=== PATIENT | female | born 1955 | race Hispanic/Latino ===

== ENCOUNTER → 2018-03-29 09:12 | Outpatient (CLI) | payer BC, SELFPAY ==
[2018-03-29 10:16] LABS: Alanine Aminotransferase 26 IU/L (9-52); Albumin 4.3 g/dL (3.5-5.0); Albumin Globulin Ratio 1.4 (1.0-2.8); Alkaline Phosphatase 85 U/L (38-126); Aspartate Aminotransferase 19 IU/L (14-36); BUN Creatinine Ratio 33.3 (6-22); Bilirubin Total 1.1 mg/dL (0.2-1.3); Blood Urea Nitrogen 20 mg/dL (7-17); Calcium 9.9 mg/dL (8.4-10.2); Carbon Dioxide 34 mmol/L (22-32); Chloride 103 mmol/L (98-107); Cholesterol 257 mg/dL (140-199); Estimated Glomerular Filt Rate > 60.0 mL/min (>60); Globulin 3.1 g/dL (1.7-4.1); Glucose 96 mg/dL (80-110); HDL Cholesterol 81 mg/dL (40-60); HEMOLYSIS < 15 (0-50); LDL Cholesterol Calculated 159 mg/dL (<100); Potassium 4.5 mmol/L (3.4-5.1); Sodium 144 mmol/L (137-145); Total Protein 7.4 g/dL (6.3-8.2); Triglycerides 85 mg/dL (35-150)
== END ==
PROVIDERS: PCP Family Medicine; Visit Provider Family Medicine
DX: I10 Essential (primary) hypertension (principal); E78.5 Hyperlipidemia, unspecified
CPT/HCPCS: 36415; 80053; 80061

== ENCOUNTER 2021-04-27 13:41 | Emergency (ER) | payer MEDICARE, BC, SELFPAY ==
[2021-04-27] VITALS (7 sets, daily range): BP systolic 136–167; BP diastolic 63–79; PULSE 46–63; RESP 16–21; TEMP 36.8; O2SAT 97–99; BMI 27.8
[2021-04-27 14:25] LABS: COVID19 -Nasal RAPID Negative (Negative)
[2021-04-27 14:46] LABS: Add Manual Diff / Slide Review NO; Basophils Absolute Auto 0 /uL (0-100); Basophils Percent Auto 0.2 % (0-2); Eosinophils Absolute Auto 0 /uL (0-450); Eosinophils Percent Auto 0.2 % (2-4); Hematocrit 41.9 % (36-46); Hemoglobin 13.8 g/dL (12.0-16.0); Lymphocytes Absolute Auto 2500 /uL (1100-4500); Lymphocytes Percent Auto 19.6 % (25-40); Mean Corpuscular HGB Conc 32.9 % (30-36); Mean Corpuscular Hemoglobin 30.4 PG (26-34); Mean Corpuscular Volume 92.4 fL (80-100); Monocytes Absolute Auto 400 /uL (0-900); Monocytes Percent Auto 2.9 % (3-14); Neutrophils Absolute Auto 9700 /uL (1500-7000); Neutrophils Percent Auto 77.1 % (50-75); Platelet Count 291 X10^3/uL (150-400); Red Blood Cell Count 4.54 X10^6/uL (4.0-5.2); Red Cell Distribution Width 14.1 % (11.6-14.8); White Blood Cell Count 12.6 X10^3/uL (4.5-11.0)
[2021-04-27 14:55] LABS: Alanine Aminotransferase 23 IU/L (<35); Albumin 4.4 g/dL (3.5-5.0); Albumin Globulin Ratio 1.3 (1.0-2.8); Alkaline Phosphatase 93 U/L (38-126); Aspartate Aminotransferase 25 IU/L (14-36); BUN Creatinine Ratio 42.3 (6-22); Bilirubin Total 0.8 mg/dL (0.2-1.3); Blood Urea Nitrogen 22 mg/dL (7-17); Carbon Dioxide 28 mmol/L (22-32); Chloride 102 mmol/L (98-107); Estimated Glomerular Filt Rate > 60.0 mL/min (>60); Globulin 3.5 g/dL (1.7-4.1); Glucose 141 mg/dL (80-110); HEMOLYSIS < 15 (0-50); Lipase 121 U/L (23-300); Potassium 3.7 mmol/L (3.4-5.1); Sodium 140 mmol/L (137-145); Total Protein 7.9 g/dL (6.3-8.2)
[2021-04-27] MEDS: ONDANSETRON 4 MG/2 ML INJ IV ×2 (15:19→18:03)
--- NOTE | 2021-04-27 16:51 | DI.CT.S_ITS ---
PROCEDURE: CT HEAD/BRAIN WO CON INDICATIONS: spinning/ dizzy TECHNIQUE: Noncontrast 4.5 mm thick angled axial sections acquired from the foramen magnum to the vertex, with coronal and sagittal reformats. For radiation dose reduction, the following was used: automated exposure control, adjustment of mA and/or kV according to patient size. COMPARISON: None. FINDINGS: Image quality: Excellent. CSF spaces: Basal cisterns are patent. No extra-axial fluid collections. The ventricles are symmetric in size and shape. Brain: No acute intracranial hemorrhage or mass effect. There is cerebral volume loss for age, with resultant ventricular and sulcal prominence. There are periventricular and deep white matter chronic small vessel ischemic changes. There is intracranial internal carotid artery atherosclerosis. Skull and face: Calvarium and visualized facial bones appear intact, without suspicious lesions. Sinuses: Visualized sinuses and mastoids are clear. IMPRESSION: No acute intracranial abnormality. Dictated by: Augustine Castillo M.D. on 04/27/2021 at 17:12 Approved by: Augustine Castillo M.D. on 04/27/2021 at 17:14
[2021-04-27 17:12] LABS: Creatine Kinase 30 U/L (30-135); Magnesium 1.9 mg/dL (1.6-2.3)
[2021-04-27 17:19] LABS: Bacteria Urine None Seen
[2021-04-27 17:24] LABS: Troponin I < 0.012 ng/mL (0.01-0.034)
[2021-04-27] MEDS: SODIUM CHLORIDE 0.9% 1,000 ML 1000 ML IV (17:31)
[2021-04-27 17:36] LABS: Mucus Urine 2+ (Negative); RBC Urine 0-1/HPF (0-5/HPF); Squamous Epithelial Cell Urine 0-1 /HPF (0-5/HPF); WBC Urine 0-1/HPF (0-5/HPF)
[2021-04-27 17:37] LABS: Culture Indicated Urine Cult Not Indicated
[2021-04-27] MEDS: MECLIZINE HCL 12.5 MG TABLET 50 MG PO (17:53)
--- NOTE | 2021-04-27 17:57 | PC.NURSE ---
ED Provider at bedside to perform physical manipulations to assess pt's response. Pt immediately reports worsening dizziness and nausea when R side is manipulated. Provided with emesis bag and zofran to be ordered.
--- NOTE | 2021-04-27 19:11 | PC.NURSE ---
Pt reports feeling much better after media analyst. Provider provided pt with PO chall of crackers and water.
--- NOTE | 2021-04-27 19:50 | ED.NAVMDI ---
HPI - Nausea/Vomiting/Diarrhea <[facility] - Last Filed: 04/27/21 19:58> General Chief complaint: Nausea/Vomiting/Diarrhea Stated complaint: dizzyness, nausea, vomiting, lightheaded, Time Seen by Provider: 04/27/21 16:35 Source: patient and family Mode of arrival: Wheelchair Limitations: no limitations History of Present Illness HPI Narrative: 65-year-old female with history of hypertension who presents with her sister for chief complaint of dizziness and spinning sensation. This happened in the middle the night at 3:30 a.m., she noted she rolled over and felt very spinning. Persistently she has felt spinning and nauseous since. She denies any chest pain or shortness of breath. She states that when this happened she woke up sweating. She denies any specific illness. She states she did have an episode of chest pain several years ago, but her Community prayed for her and it went away. She has not been vaccinated against coronavirus. She denies any fevers or muscle aches. She denies any Chest pain or shortness of breath. She denies any dysuria urgency or frequency. Related Data Previous Rx's Medication Instructions Recorded meclizine 25 mg tablet 25 mg PO TID PRN #20 tab 04/27/21 Allergies Allergy/AdvReac Type Severity Reaction Status Date / Time No Known Drug Allergies Allergy Verified 04/27/21 13:50 Review of Systems <[facility] - Last Filed: 04/27/21 19:58> Review of Systems Narrative: GENERAL: Denies chills, fatigue, malaise, fever, sweats. HEENT: Denies sinus pain, ear pain, sore throat, difficulty swallowing, dizziness. RESPIRATORY: Denies dyspnea, cough, wheezing, hemoptysis, sputum. CARDIOVASCULAR: See HPI GASTROINTESTINAL: Denies nausea, vomiting, abdominal pain, diarrhea, constipation, melena. : Denies dysuria, frequency, incontinence, hematuria, urinary retention. MUSCULOSKELETAL: denies weakness, joint pain, or bony pain SKIN: Denies rash, skin lesions, or other NEUROLOGIC: See HPI PSYCHIATRIC: No concerning psychosocial issues. 12 point review of systems is negative except for those stated above Patient History <[facility] - Last Filed: 04/27/21 19:58> Social History Smoking Status: Never smoker Smoking Status: Never smoker alcohol intake frequency: 0-2 drinks per day Substance Use Type: does not use Exam <Valentina CRISTY Aiken-BC - Last Filed: 04/27/21 19:58> Narrative Exam Narrative: GENERAL: This is a well-nourished, well-developed patient, in no acute distress HEAD: Atraumatic. Normocephalic. No temporal or scalp tenderness. EYES: Pupils equal round and reactive. Extraocular motions intact. No scleral icterus. No injection or drainage. ENT: Nose without bleeding, purulent drainage or septal hematoma. Throat without erythema, tonsillar hypertrophy or exudate. Uvula midline. Airway patent. Horizontal nystagmus noted. Bilateral TMs pearly leung. NECK: Trachea midline. No JVD or lymphadenopathy. Supple, nontender, no meningeal signs. CARDIOVASCULAR: Regular rate and rhythm without murmurs, gallops, or rubs. RESPIRATORY: Clear to auscultation. Breath sounds equal bilaterally. No wheezes, rales, or rhonchi. No cough. No increased respiratory effort. No accessory muscle use GASTROINTESTINAL: Abdomen soft, non-tender, nondistended. No hepato-splenomegaly, or palpable masses. No guarding. EXTREMITIES: No clubbing, cyanosis, or edema. No joint tenderness, effusion, or edema noted. Strength is equal upper and lower extremities bilaterally. BACK: Nontender without deformity or crepitance. No flank tenderness. NEURO: AOx3. NIH 0. Positive Shabnam-Hallpike on right side. Negative Dallas-Hallpike on left side. SKIN: No rash or erythema. Initial Vital Signs Initial Vital Signs: Vital Signs Temperature 98.2 F 04/27/21 13:47 Pulse Rate 63 04/27/21 13:47 Respiratory Rate 18 04/27/21 13:47 Blood Pressure 167/79 H 04/27/21 13:47 Pulse Oximetry 97 04/27/21 13:47 <José Antonio Cervantes DO - Last Filed: 04/28/21 07:05> Initial Vital Signs Initial Vital Signs: Vital Signs Temperature 98.2 F 04/27/21 13:47 Pulse Rate 63 04/27/21 13:47 Respiratory Rate 18 04/27/21 13:47 Blood Pressure 167/79 H 04/27/21 13:47 Pulse Oximetry 97 04/27/21 13:47 Scores <MARIAMA Granados - Last Filed: 04/27/21 19:58> GCS [place] coma scale eye opening: Spontaneous [place] coma scale verbal response: Orientated [place] coma scale motor response: Obey commands Gabbi coma scale total score: 15 NIH Stroke Scale Level of Conciousness: Alert, keenly responsive Ask month/age: Answers both questions correctly. Open/close eyes, close hand: Performs both tasks correctly Best gaze horizontal: Normal Visual katz: No visual loss Facial palsy: Normal symetrical movement Left arm drift: No drift for full 10 sec Right arm drift: No drift for full 10 sec Left leg drift: No drift for full 5 sec Right leg drift: No drift for full 5 sec Limb ataxia: Absent Sensory on face/arms/legs: Normal, no sensory loss Best language: No aphasia, normal Dysarthria: Normal Extinction or inattention: No abnormality Total NIH Stroke scale score: 0 <José Antonio Cervantes DO - Last Filed: 04/28/21 07:05> GCS [place] coma scale total score: 15 NIH Stroke Scale Total NIH Stroke scale score: 0 Course <MARIAMA Granados - Last Filed: 04/27/21 19:58> Orders Ordered: Discontinued Medications Sodium Chloride (Normal Saline 0.9%) 1,000 mls @ 1,000 mls/hr IV BOLUS ONE Stop: 04/27/21 17:50 Last Infusion: 04/27/21 19:09 Dose: 0 mls/hr Documented by: Admin: 04/27/21 17:31 Dose: 1,000 mls/hr Documented by: DALIA Meclizine HCl (Meclizine Hcl 12.5 Mg Tablet) 50 mg PO NOW ONE Stop: 04/27/21 17:34 Last Admin: 04/27/21 17:53 Dose: 50 mg Documented by: DALIA Ondansetron HCl (Ondansetron 4 Mg/2 Ml Inj) 4 mg IV NOW ONE Stop: 04/27/21 15:19 Last Admin: 04/27/21 15:19 Dose: 4 mg Documented by: NATANAEL Ondansetron HCl (Ondansetron 4 Mg/2 Ml Inj) 4 mg IV NOW ONE Stop: 04/27/21 17:57 Last Admin: 04/27/21 18:03 Dose: 4 mg Documented by: DALIA Vital Signs Vital signs: Vital Signs - 8 hr 04/27/21 13:47 04/27/21 16:37 04/27/21 17:09 Temperature 98.2 F Pulse Rate 63 48 L 50 L Respiratory Rate 18 20 Blood Pressure 167/79 H 155/67 H Pulse Oximetry 97 99 04/27/21 17:10 04/27/21 18:00 04/27/21 18:30 Temperature Pulse Rate 54 L 46 L Respiratory Rate 16 21 Blood Pressure 136/63 Pulse Oximetry 99 97 04/27/21 19:00 Temperature Pulse Rate 47 L Respiratory Rate 20 Blood Pressure Pulse Oximetry 99 <José Antonio Cervantes DO - Last Filed: 04/28/21 07:05> Orders Ordered: Discontinued Medications Sodium Chloride (Normal Saline 0.9%) 1,000 mls @ 1,000 mls/hr IV BOLUS ONE Stop: 04/27/21 17:50 Last Infusion: 04/27/21 19:09 Dose: 0 mls/hr Documented by: Admin: 04/27/21 17:31 Dose: 1,000 mls/hr Documented by: DALIA Meclizine HCl (Meclizine Hcl 12.5 Mg Tablet) 50 mg PO NOW ONE Stop: 04/27/21 17:34 Last Admin: 04/27/21 17:53 Dose: 50 mg Documented by: DALIA Ondansetron HCl (Ondansetron 4 Mg/2 Ml Inj) 4 mg IV NOW ONE Stop: 04/27/21 15:19 Last Admin: 04/27/21 15:19 Dose: 4 mg Documented by: NATANAEL Ondansetron HCl (Ondansetron 4 Mg/2 Ml Inj) 4 mg IV NOW ONE Stop: 04/27/21 17:57 Last Admin: 04/27/21 18:03 Dose: 4 mg Documented by: DALIA Vital Signs Vital signs: Vital Signs - 8 hr 04/27/21 13:47 04/27/21 16:37 04/27/21 17:09 Temperature 98.2 F Pulse Rate 63 48 L 50 L Respiratory Rate 18 20 Blood Pressure 167/79 H 155/67 H Pulse Oximetry 97 99 04/27/21 17:10 04/27/21 18:00 04/27/21 18:30 Temperature Pulse Rate 54 L 46 L Respiratory Rate 16 21 Blood Pressure 136/63 Pulse Oximetry 99 97 04/27/21 19:00 Temperature Pulse Rate 47 L Respiratory Rate 20 Blood Pressure Pulse Oximetry 99 MDM - Nausea/Vomiting/Diarrhea <Valentinajessica Aiken, CUSTOMER [employer]IER-BC - Last Filed: 04/27/21 19:58> Lab Data Attestation: I reviewed the patient's lab results. Result diagrams: 04/27/21 14:40 04/27/21 14:40 Labs: Lab Results 04/27/21 04/27/21 04/27/21 Range/Units 13:53 14:40 14:40 WBC 12.6 H (4.5-11.0) X10^3/uL RBC 4.54 (4.0-5.2) X10^6/uL Hgb 13.8 (12.0-16.0) g/dL Hct 41.9 (36-46) % MCV 92.4 (80-100) fL MCH 30.4 (26-34) PG MCHC 32.9 (30-36) % RDW 14.1 (11.6-14.8) % Plt Count 291 (150-400) X10^3/uL Neut % (Auto) 77.1 H (50-75) % Lymph % (Auto) 19.6 L (25-40) % [place] % (Auto) 2.9 L (3-14) % Eos % (Auto) 0.2 L (2-4) % Baso % (Auto) 0.2 (0-2) % Neut # (Auto) 9700 H (4323-7848) /uL Lymph # (Auto) 2500 (2309-5468) /uL [place] # (Auto) 400 (0-900) /uL Eos # (Auto) 0 (0-450) /uL Baso # (Auto) 0 (0-100) /uL Sodium 140 (137-145) mmol/L Potassium 3.7 (3.4-5.1) mmol/L Chloride 102 (98-107) mmol/L Carbon Dioxide 28 (22-32) mmol/L BUN 22 H (7-17) mg/dL Creatinine 0.52 (0.52-1.04) mg/dL Estimated GFR > 60.0 (>60) mL/min BUN/Creatinine Ratio 42.3 H (6-22) Glucose 141 H (80-110) mg/dL Calcium 10.0 (8.4-10.2) mg/dL Magnesium (1.6-2.3) mg/dL Total Bilirubin 0.8 (0.2-1.3) mg/dL AST 25 (14-36) IU/L ALT 23 (<35) IU/L Alkaline Phosphatase 93 (38-126) U/L Total Creatine Kinase (30-135) U/L CK-MB (CK-2) CK-MB (CK-2) Rel Index Troponin I (0.01-0.034) ng/mL Total Protein 7.9 (6.3-8.2) g/dL Albumin 4.4 (3.5-5.0) g/dL Globulin 3.5 (1.7-4.1) g/dL Albumin/Globulin Ratio 1.3 (1.0-2.8) Lipase 121 (23-300) U/L Urine RBC (0-5/HPF) Urine WBC (0-5/HPF) Ur Squamous Epith Cells (0-5/HPF) Urine Bacteria (None) Urine Mucus (Negative) Ur Culture Indicated? SARS-CoV-2 (PCR) Negative (Negative) 04/27/21 04/27/21 Range/Units 14:40 17:00 WBC (4.5-11.0) X10^3/uL RBC (4.0-5.2) X10^6/uL Hgb (12.0-16.0) g/dL Hct (36-46) % MCV (80-100) fL MCH (26-34) PG MCHC (30-36) % RDW (11.6-14.8) % Plt Count (150-400) X10^3/uL Neut % (Auto) (50-75) % Lymph % (Auto) (25-40) % [place] % (Auto) (3-14) % Eos % (Auto) (2-4) % Baso % (Auto) (0-2) % Neut # (Auto) (2308-3552) /uL Lymph # (Auto) (9789-4022) /uL [place] # (Auto) (0-900) /uL Eos # (Auto) (0-450) /uL Baso # (Auto) (0-100) /uL Sodium (137-145) mmol/L Potassium (3.4-5.1) mmol/L Chloride (98-107) mmol/L Carbon Dioxide (22-32) mmol/L BUN (7-17) mg/dL Creatinine (0.52-1.04) mg/dL Estimated GFR (>60) mL/min BUN/Creatinine Ratio (6-22) Glucose (80-110) mg/dL Calcium (8.4-10.2) mg/dL Magnesium 1.9 (1.6-2.3) mg/dL Total Bilirubin (0.2-1.3) mg/dL AST (14-36) IU/L ALT (<35) IU/L Alkaline Phosphatase (38-126) U/L Total Creatine Kinase 30 (30-135) U/L CK-MB (CK-2) TNP CK-MB (CK-2) Rel Index TNP Troponin I < 0.012 (0.01-0.034) ng/mL Total Protein (6.3-8.2) g/dL Albumin (3.5-5.0) g/dL Globulin (1.7-4.1) g/dL Albumin/Globulin Ratio (1.0-2.8) Lipase (23-300) U/L Urine RBC 0-1/hpf (0-5/HPF) Urine WBC 0-1/hpf (0-5/HPF) Ur Squamous Epith Cells 0-1 /hpf (0-5/HPF) Urine Bacteria None seen (None) Urine Mucus 2+ H (Negative) Ur Culture Indicated? Cult not indicated SARS-CoV-2 (PCR) (Negative) Urine Dip Bedside Urine Glucose Negative Bedside Urine Bilirubin - Negative Bedside Urine Ketone - Negative Urine Specific [place] 1.030 Bedside Urine Occult Blood +/- Bedside Urine pH 6 Bedside Urine Protein +/- 15 Bedside Urine Urobilinogen - Negative Bedside Urine Nitrite - Negative Bedside Urine Leukocytes - Negative Esterase Imaging Data CT scan - head: Radiologist's Impression: [address] [place] [id number] Scan ReportSigned Patient: Tyra Hoffmann AM[facility]#: [id number]: 4Acct:[id number]/Sex: 65 / FDate of Service: 04/27/21Loc: EDAccession Number: [id number] Procedure: CT head/brain wo con Ordering Provider: Valentina Aiken PROCEDURE: CT HEAD/BRAIN WO CON INDICATIONS: spinning/ dizzy TECHNIQUE: Noncontrast 4.5 mm thick angled axial sections acquired from the foramen magnum to the vertex, with coronal and sagittal reformats. For radiation dose reduction, the following was used: automated exposure control, adjustment of mA and/or kV according to patient size. COMPARISON: None. FINDINGS: Image quality: Excellent. CSF spaces: Basal cisterns are patent. No extra-axial fluid collections. The ventricles are symmetric in size and shape. Brain: No acute intracranial hemorrhage or mass effect. There is cerebral volume loss for age, with resultant ventricular and sulcal prominence. There are periventricular and deep white matter chronic small vessel ischemic changes. There is intracranial internal carotid artery atherosclerosis. Skull and face: Calvarium and visualized facial bones appear intact, without suspicious lesions. Sinuses: Visualized sinuses and mastoids are clear. IMPRESSION: No acute intracranial abnormality. Dictated by: Augustine Castillo M.D. on 04/27/2021 at 17:12 Approved by: Augustine Castillo M.D. on 04/27/2021 at 17:14 ECG Data Attestation: I personally reviewed and interpreted this ECG as follows: Interpretation: Sinus bradycardia. Ventricular rate 59. P.r. interval 144. viewed by Dr Cervantes MDM Narrative Medical decision making narrative: The patient is a 65-year-old female who presents with a chief complaint of a spinning sensation since 03:30 this morning. Her NIH is 0. Her COVID test is negative. Her labs are grossly normal, including a negative troponin. However she does have a positive [place]-Hallpike, and initiation of spinning sensation while rolling over in bed. Thus she was given IV fluids, Zofran and meclizine for vertigo. She felt much improved after this was able to tolerate p.o. food and fluids. I discussed at length with the patient and family that she needs primary care provider follow-up, may need to have Noris's maneuvers done etcetera. Discussed at length case with Dr Cervantes. No sign of UTI on urinalysis. Discussed at length rest, sleep, pushing fluids use of meclizine and coming back to the ER for acute concerns. Patient has no questions or concerns upon discharge states understanding return precautions as well as follow-up care. She reiterates she feels much improved compared to when she got here. Patient has appeared well and nontoxic throughout her stay in the ER. <José Antonio Cervantes, DO - Last Filed: 04/28/21 07:05> Lab Data Labs: Lab Results 04/27/21 04/27/21 04/27/21 Range/Units 13:53 14:40 14:40 WBC 12.6 H (4.5-11.0) X10^3/uL RBC 4.54 (4.0-5.2) X10^6/uL Hgb 13.8 (12.0-16.0) g/dL Hct 41.9 (36-46) % MCV 92.4 (80-100) fL MCH 30.4 (26-34) PG MCHC 32.9 (30-36) % RDW 14.1 (11.6-14.8) % Plt Count 291 (150-400) X10^3/uL Neut % (Auto) 77.1 H (50-75) % Lymph % (Auto) 19.6 L (25-40) % [place] % (Auto) 2.9 L (3-14) % Eos % (Auto) 0.2 L (2-4) % Baso % (Auto) 0.2 (0-2) % Neut # (Auto) 9700 H (7774-9102) /uL Lymph # (Auto) 2500 (4274-6846) /uL [place] # (Auto) 400 (0-900) /uL Eos # (Auto) 0 (0-450) /uL Baso # (Auto) 0 (0-100) /uL Sodium 140 (137-145) mmol/L Potassium 3.7 (3.4-5.1) mmol/L Chloride 102 (98-107) mmol/L Carbon Dioxide 28 (22-32) mmol/L BUN 22 H (7-17) mg/dL Creatinine 0.52 (0.52-1.04) mg/dL Estimated GFR > 60.0 (>60) mL/min BUN/Creatinine Ratio 42.3 H (6-22) Glucose 141 H (80-110) mg/dL Calcium 10.0 (8.4-10.2) mg/dL Magnesium (1.6-2.3) mg/dL Total Bilirubin 0.8 (0.2-1.3) mg/dL AST 25 (14-36) IU/L ALT 23 (<35) IU/L Alkaline Phosphatase 93 (38-126) U/L Total Creatine Kinase (30-135) U/L CK-MB (CK-2) CK-MB (CK-2) Rel Index Troponin I (0.01-0.034) ng/mL Total Protein 7.9 (6.3-8.2) g/dL Albumin 4.4 (3.5-5.0) g/dL Globulin 3.5 (1.7-4.1) g/dL Albumin/Globulin Ratio 1.3 (1.0-2.8) Lipase 121 (23-300) U/L Urine RBC (0-5/HPF) Urine WBC (0-5/HPF) Ur Squamous Epith Cells (0-5/HPF) Urine Bacteria (None) Urine Mucus (Negative) Ur Culture Indicated? SARS-CoV-2 (PCR) Negative (Negative) 04/27/21 04/27/21 Range/Units 14:40 17:00 WBC (4.5-11.0) X10^3/uL RBC (4.0-5.2) X10^6/uL Hgb (12.0-16.0) g/dL Hct (36-46) % MCV (80-100) fL MCH (26-34) PG MCHC (30-36) % RDW (11.6-14.8) % Plt Count (150-400) X10^3/uL Neut % (Auto) (50-75) % Lymph % (Auto) (25-40) % [place] % (Auto) (3-14) % Eos % (Auto) (2-4) % Baso % (Auto) (0-2) % Neut # (Auto) (3025-6727) /uL Lymph # (Auto) (4569-2466) /uL [place] # (Auto) (0-900) /uL Eos # (Auto) (0-450) /uL Baso # (Auto) (0-100) /uL Sodium (137-145) mmol/L Potassium (3.4-5.1) mmol/L Chloride (98-107) mmol/L Carbon Dioxide (22-32) mmol/L BUN (7-17) mg/dL Creatinine (0.52-1.04) mg/dL Estimated GFR (>60) mL/min BUN/Creatinine Ratio (6-22) Glucose (80-110) mg/dL Calcium (8.4-10.2) mg/dL Magnesium 1.9 (1.6-2.3) mg/dL Total Bilirubin (0.2-1.3) mg/dL AST (14-36) IU/L ALT (<35) IU/L Alkaline Phosphatase (38-126) U/L Total Creatine Kinase 30 (30-135) U/L CK-MB (CK-2) TNP CK-MB (CK-2) Rel Index TNP Troponin I < 0.012 (0.01-0.034) ng/mL Total Protein (6.3-8.2) g/dL Albumin (3.5-5.0) g/dL Globulin (1.7-4.1) g/dL Albumin/Globulin Ratio (1.0-2.8) Lipase (23-300) U/L Urine RBC 0-1/hpf (0-5/HPF) Urine WBC 0-1/hpf (0-5/HPF) Ur Squamous Epith Cells 0-1 /hpf (0-5/HPF) Urine Bacteria None seen (None) Urine Mucus 2+ H (Negative) Ur Culture Indicated? Cult not indicated SARS-CoV-2 (PCR) (Negative) Urine Dip Bedside Urine Glucose Negative Bedside Urine Bilirubin - Negative Bedside Urine Ketone - Negative Urine Specific [place] 1.030 Bedside Urine Occult Blood +/- Bedside Urine pH 6 Bedside Urine Protein +/- 15 Bedside Urine Urobilinogen - Negative Bedside Urine Nitrite - Negative Bedside Urine Leukocytes - Negative Esterase Discharge Plan Departure Patient Disposition: Home Clinical Impression: Dizziness, Vertigo Instructions: Vertigo, Benign Paroxysmal Positional Vertigo Activity Restrictions/Additional Instructions: Thank you for trusting us with your care today. Your workup is consistent with vertigo. As discussed, please follow-up with primary care provider in the next few days. Please rest and push fluids over the next few days. I sent a prescription of meclizine to [facility] in [place]. Please come back to the emergency department for any acute concerns. Prescriptions: New meclizine 25 mg tablet 25 mg PO TID PRN (Reason: motion sickness) Qty: 20 RF: 0 Referrals: Yoav Gunn MD [Primary Care Provider] - <José Antonio Cervantes DO - Last Filed: 04/28/21 07:05> [facility] Dr Cervantes Co-Sign Statement: I was available for consultation during this patient's emergency department visit. This chart is signed by myself for administrative purposes only. I did not have direct contact with this patient during this visit. They were seen independently by the APC.
== END 2021-04-27 19:46 | disposition home or self-care (01) ==
PROVIDERS: Emergency Medicine; Emergency Provider Nurse Practitioner Family; PCP Family Medicine
DX: R42 Dizziness and giddiness (principal); R07.9 Chest pain, unspecified; Z20.822 Contact with and (suspected) exposure to COVID-19
CPT/HCPCS: 36415; 70450; 80053; 81003; 81015; 82550; 83690; 83735; 84484; 85025; 87635; 93005; 96361; 96374; 96376; 99285; C9803; J2405

== ENCOUNTER 2022-10-05 15:15 | Outpatient (RCR) | payer MEDICARE, BC, SELFPAY ==
--- NOTE | 2022-08-26 15:36 | PT.OIE ---
Current Diagnoses Benign paroxysmal vertigo, left ear (08/26/22) Dizziness and giddiness (08/26/22) Visit Care Team Role Provider Type Yoav Gunn MD Attending Provider Non-Staff Family Provider Primary Care Provider Referring Provider Specialty: Family Practice Address: [address] [place] [address], [phone] Email: Physical Therapy Initial Evaluation PT-OP-A Visit Information Start: 08/26/22 15:18 Freq: Status: Active Protocol: Document 08/26/22 13:45 DCW (Rec: 08/26/22 15:36 DCW [id number]) Out-Patient Physical Therapy Visit Information Visit Information Visit Type Initial Evaluation Visit Start Time 13:45 Visit Stop Time 14:30 Total Visit Minutes 45 Visit Number 1 Number of BLOCK MAKING MACHINE OPERATOR Visits 0 Evaluation Information Evaluation Date 08/26/22 PT-OP-B Current Condition Start: 08/26/22 15:18 Freq: Status: Active Protocol: Document 08/26/22 13:45 DCW (Rec: 08/26/22 15:36 DCW [id number]) Current Condition History of Current Condition Onset Date 13 months Current Complaints Positional vertigo History of Current Condition Pt is a 67 year old female complaining of a 13 month history of motion-induced vertigo and imbalance. Pt reports episodes last seconds . Symptoms are provoked by lying down or sitting up in bed. Pt reports that she was treated four separate times in July and August 2021, and September 2021 at a different clinic for these same symptoms, reports that symptoms decreased in severity , however she doesn't think it ever truly went away. Does note that recently she has felt much more of a low-level instability when up moving around on her feet. Prior Treatments and Tests Noris maneuver x4 11-13 months ago at a different clinic PT-OP-C Subjective Start: 08/26/22 15:18 Freq: Status: Active Protocol: Document 08/26/22 13:45 DCW (Rec: 08/26/22 15:36 DCW [id number]) OP-PT Subjective Patient Comments Patient Comments It's been going on since last July. It's not as bad, but I feel a little more loopy now. Patient Questionnaires Dizziness Handicap Inventory DHI Score 54% PT-OP-O Vestibular Start: 08/26/22 15:18 Freq: Status: Active Protocol: Document 08/26/22 13:45 DCW (Rec: 08/26/22 15:36 DC [id number]) Vestibular Assessment Screening Tests Vestibular Artery Screen Negative Auditory Tests Leyva Test Within normal limits Rinne Test Negative Air Conduction Results Equal Visual Testing Smooth Pursuits Horizontal WNL Smooth Pursuits Vertical WNL Saccades Horizontal WNL Saccades Vertical WNL Heave Test Negative Thrust Head Negative Positional Testing Shabnam-Hallpike Positive Left,Negative Right, Upbeating,< 60 Seconds Rolling Test Negative Left,Negative Right PT-OP-Q Treatments Start: 08/26/22 15:18 Freq: Status: Active Protocol: Document 08/26/22 13:45 DCW (Rec: 08/26/22 15:36 DCW [id number]) Canalithic Repositioning BPPV Treatment Noris Affected Canal(s) Left posterior Reps x2 Comments Modified Noris PT-OP-T Assessment and Plan Start: 08/26/22 15:18 Freq: Status: Active Protocol: Document 08/26/22 13:45 DCW (Rec: 08/26/22 15:36 [facility] [id number]) Physical Therapy Assessment Rehab Potential Rehabilitation Potential Excellent Evaluation Complexity Number of Personal Factors/Comorbidities 0 Number of Body Systems Impaired 1-2 Clinical Presentation at Evaluation Unstable Impairments Impairments Balance,Vestibular Goals Two Impairment Pt reports subjective dizziness with positional changes in bed Director Blood Bank Goal (LTG) Pt to perform bed mobility with no symptoms of vertigo LTG Duration 10/07/22 One Impairment Pt scores a 54% handicap on the Dizziness Handicap Inventory Mcfp Goal (LTG) Pt to decrease DHI score by at least 29% to a maximum of 25% disability. LTG Duration 10/07/22 Assessment Summary Assessment During left [place]-Hallpike test, pt complained of vertigo and demonstrated up-beating, torsional nystagmus lasting approximately 5 seconds, consistent with diagnosis of left-sided posterior canal BPPV, canalithiasis-type. Pt was treated with a left-sided modified Noris maneuver. Pt complained of symptoms in the first and third position, which is normally indicative of a successful treatment. Further positional testing was negative. Pt was educated on BPPV, expectations for treatment, possible recurrence (BPPV has a ~50% recurrence rate in the five years following treatment), and post -Noris restrictions. Pt to return in ~1 week for a follow -up appointment, and intermittently afterward as indicated for treatment of BPPV. Physical Therapy Plan Frequency and Duration Frequency of Treatment 1-2x/week Duration of treatment (weeks) 6 Plan of Care Start Date 08/26/22 Plan of Care End Date 10/07/22 Therapeutic Interventions Therapeutic Interventions Balance Training,Canalithic Repositioning,Home Exercise Program,Neuromuscular Re- education,Therapeutic Activities,Therapeutic Exercises,Vestibular Rehabilitation Next Visit Focus/Plan Next Note Type Treatment Note Next Visit Plan Positional testing and CRM as indicated
--- NOTE | 2022-08-26 15:36 | PT.OPPOC ---
Physical, Occupational & Speech Therapy At Current Diagnoses Benign paroxysmal vertigo, left ear (08/26/22) Dizziness and giddiness (08/26/22) Visit Care Team Role Provider Type Yoav Gunn MD Attending Provider Non-Staff Family Provider Primary Care Provider Referring Provider Specialty: Family Practice Address: [address] [place] [address], [phone] Email: Plan Of Care PT-OP-T Assessment and Plan Start: 08/26/22 15:18 Freq: Status: Active Protocol: Document 08/26/22 13:45 DCW (Rec: 08/26/22 15:36 DCW [id number]) Physical Therapy Assessment Rehab Potential Rehabilitation Potential Excellent Evaluation Complexity Number of Personal Factors/Comorbidities 0 Number of Body Systems Impaired 1-2 Clinical Presentation at Evaluation Unstable Impairments Impairments Balance,Vestibular Goals Two Impairment Pt reports subjective dizziness with positional changes in bed Assistant Property Manager Goal (LTG) Pt to perform bed mobility with no symptoms of vertigo LTG Duration 10/07/22 One Impairment Pt scores a 54% handicap on the Dizziness Handicap Inventory Assistant Property Manager Goal (LTG) Pt to decrease DHI score by at least 29% to a maximum of 25% disability. LTG Duration 10/07/22 Assessment Summary Assessment During left [place]-Hallpike test, pt complained of vertigo and demonstrated up-beating, torsional nystagmus lasting approximately 5 seconds, consistent with diagnosis of left-sided posterior canal BPPV, canalithiasis-type. Pt was treated with a left-sided modified Noris maneuver. Pt complained of symptoms in the first and third position, which is normally indicative of a successful treatment. Further positional testing was negative. Pt was educated on BPPV, expectations for treatment, possible recurrence (BPPV has a ~50% recurrence rate in the five years following treatment), and post -Noris restrictions. Pt to return in ~1 week for a follow -up appointment, and intermittently afterward as indicated for treatment of BPPV. Physical Therapy Plan Frequency and Duration Frequency of Treatment 1-2x/week Duration of treatment (weeks) 6 Plan of Care Start Date 08/26/22 Plan of Care End Date 10/07/22 Therapeutic Interventions Therapeutic Interventions Balance Training,Canalithic Repositioning,Home Exercise Program,Neuromuscular Re- education,Therapeutic Activities,Therapeutic Exercises,Vestibular Rehabilitation Next Visit Focus/Plan Next Note Type Treatment Note Next Visit Plan Positional testing and CRM as indicated Plan of Care Dates Plan of Care Start Date 08/26/22 Plan of Care End Date 10/07/22 Electronically Signed by: Cortez Alcantar, PT 08/26/22 9316 If you are in agreement with this Plan of Care, please return a signed and dated copy. I have reviewed this Plan of Care and certify that the skilled therapy services above are required to meet the patient?s needs. Physician Signature Date Printed Name and Credentials Clinical Instructor Signature Printed Name and Credentials
--- NOTE | 2022-08-29 14:27 | PT.OTN ---
Current Diagnoses Benign paroxysmal vertigo, left ear (08/29/22) Dizziness and giddiness (08/29/22) Physical Therapy Treatment Note PT-OP-A Visit Information Start: 08/26/22 15:18 Freq: Status: Active Protocol: Document 08/29/22 13:45 DCW (Rec: 08/29/22 14:27 DCW [id number]) Out-Patient Physical Therapy Visit Information Visit Information Visit Type Treatment Note Visit Start Time 13:45 Visit Stop Time 14:15 Total Visit Minutes 30 Visit Number 2 Number of SEAM FINISHER Visits 0 Evaluation Information Evaluation Date 08/26/22 PT-OP-B Current Condition Start: 08/26/22 15:18 Freq: Status: Active Protocol: Document 08/26/22 13:45 DCW (Rec: 08/26/22 15:36 DCW [id number]) Current Condition History of Current Condition Onset Date 13 months Current Complaints Positional vertigo History of Current Condition Pt is a 67 year old female complaining of a 13 month history of motion-induced vertigo and imbalance. Pt reports episodes last seconds . Symptoms are provoked by lying down or sitting up in bed. Pt reports that she was treated four separate times in July and August 2021, and September 2021 at a different clinic for these same symptoms, reports that symptoms decreased in severity , however she doesn't think it ever truly went away. Does note that recently she has felt much more of a low-level instability when up moving around on her feet. Prior Treatments and Tests Noris maneuver x4 11-13 months ago at a different clinic PT-OP-C Subjective Start: 08/26/22 15:18 Freq: Status: Active Protocol: Document 08/29/22 13:45 DCW (Rec: 08/29/22 14:27 DCW [id number]) OP-PT Subjective Patient Comments Patient Comments Pt reports there has been no spinning, still feeling just a little lightheaded. PT-OP-O Vestibular Start: 08/26/22 15:18 Freq: Status: Active Protocol: Document 08/26/22 13:45 DCW (Rec: 08/26/22 15:36 DCW [id number]) Vestibular Assessment Screening Tests Vestibular Artery Screen Negative Auditory Tests Leyva Test Within normal limits Rinne Test Negative Air Conduction Results Equal Visual Testing Smooth Pursuits Horizontal WNL Smooth Pursuits Vertical WNL Saccades Horizontal WNL Saccades Vertical WNL Heave Test Negative Thrust Head Negative Positional Testing Shabnam-Hallpike Positive Left,Negative Right, Upbeating,< 60 Seconds Rolling Test Negative Left,Negative Right PT-OP-Q Treatments Start: 08/26/22 15:18 Freq: Status: Active Protocol: Document 08/29/22 13:45 DCW (Rec: 08/29/22 14:27 DCW [id number]) Canalithic Repositioning BPPV Treatment Gufoni Affected Canal(s) Right horizontal Reps x1 Noris Affected Canal(s) Right posterior Reps x1 Comments Modified Noris PT-OP-T Assessment and Plan Start: 08/26/22 15:18 Freq: Status: Active Protocol: Document 08/29/22 13:45 DCW (Rec: 08/29/22 14:27 DCW [id number]) Physical Therapy Assessment Impairments Impairments Balance,Vestibular Goals Two Impairment Pt reports subjective dizziness with positional changes in bed Penitentiary Goal (LTG) Pt to perform bed mobility with no symptoms of vertigo LTG Duration 10/07/22 One Impairment Pt scores a 54% handicap on the Dizziness Handicap Inventory Penitentiary Goal (LTG) Pt to decrease DHI score by at least 29% to a maximum of 25% disability. LTG Duration 10/07/22 Assessment Summary Assessment Left Shabnam-Hallpike negative for nystagmus, however pt noted some very mild vertigo. Upon testing right side, pt had very strong vertigo with up- beating, torsional nystagmus lasting approximately 5 seconds, consistent with diagnosis of right-sided posterior canal BPPV, canalithiasis-type. Pt was treated with a right-sided modified Noris maneuver. Pt complained of symptoms in the first and third position, which is normally indicative of a successful treatment. Upon retesting, pt then complained of vertigo with geotropic horizontal nystagmus , likely indicating conversion to right-sided horizontal canal BPPV, canalithiasis-type . Pt was treated with a right- sided Gufoni maneuver. Due to recent conversion, decided to forego further testing for today, pt reminded of post- Noris restrictions. Physical Therapy Plan Frequency and Duration Frequency of Treatment 1-2x/week Duration of treatment (weeks) 6 Plan of Care Start Date 08/26/22 Plan of Care End Date 10/07/22 Therapeutic Interventions Therapeutic Interventions Balance Training,Canalithic Repositioning,Home Exercise Program,Neuromuscular Re- education,Therapeutic Activities,Therapeutic Exercises,Vestibular Rehabilitation Next Visit Focus/Plan Next Note Type Treatment Note Next Visit Plan Positional testing and CRM as indicated
--- NOTE | 2022-09-02 10:55 | PT.OTN ---
Current Diagnoses Benign paroxysmal vertigo, left ear (09/02/22) Dizziness and giddiness (09/02/22) Physical Therapy Treatment Note PT-OP-A Visit Information Start: 08/26/22 15:18 Freq: Status: Active Protocol: Document 09/02/22 10:30 DCW (Rec: 09/02/22 10:54 DCW [id number]) Out-Patient Physical Therapy Visit Information Visit Information Visit Type Treatment Note Visit Start Time 10:30 Visit Stop Time 10:50 Total Visit Minutes 20 Visit Number 3 Number of RESIDENTIAL SUPPORT WORKER Visits 0 Evaluation Information Evaluation Date 08/26/22 PT-OP-B Current Condition Start: 08/26/22 15:18 Freq: Status: Active Protocol: Document 08/26/22 13:45 DCW (Rec: 08/26/22 15:36 DCW [id number]) Current Condition History of Current Condition Onset Date 13 months Current Complaints Positional vertigo History of Current Condition Pt is a 67 year old female complaining of a 13 month history of motion-induced vertigo and imbalance. Pt reports episodes last seconds . Symptoms are provoked by lying down or sitting up in bed. Pt reports that she was treated four separate times in July and August 2021, and September 2021 at a different clinic for these same symptoms, reports that symptoms decreased in severity , however she doesn't think it ever truly went away. Does note that recently she has felt much more of a low-level instability when up moving around on her feet. Prior Treatments and Tests Noris maneuver x4 11-13 months ago at a different clinic PT-OP-C Subjective Start: 08/26/22 15:18 Freq: Status: Active Protocol: Document 09/02/22 10:30 DCW (Rec: 09/02/22 10:54 DCW [id number]) OP-PT Subjective Patient Comments Patient Comments The vertigo has come back. Admits it is not too bad, but there is some spinning. PT-OP-O Vestibular Start: 08/26/22 15:18 Freq: Status: Active Protocol: Document 09/02/22 10:30 DCW (Rec: 09/02/22 10:54 DCW [id number]) Vestibular Assessment Positional Testing Shabnam-Hallpike Positive Left,Positive Right, Upbeating,< 60 Seconds PT-OP-Q Treatments Start: 12/09/22 15:18 Freq: Status: Active Protocol: Document 09/02/22 10:30 DCW (Rec: 09/02/22 10:54 DCW [id number]) Canalithic Repositioning BPPV Treatment Noris Affected Canal(s) Left posterior Reps x2 Comments Modified Noris PT-OP-T Assessment and Plan Start: 08/26/22 15:18 Freq: Status: Active Protocol: Document 09/02/22 10:30 DCW (Rec: 09/02/22 10:54 DCW [id number]) Physical Therapy Assessment Impairments Impairments Balance,Vestibular Goals Two Impairment Pt reports subjective dizziness with positional changes in bed Child Caregiver Goal (LTG) Pt to perform bed mobility with no symptoms of vertigo LTG Duration 10/07/22 One Impairment Pt scores a 54% handicap on the Dizziness Handicap Inventory Senior Care Goal (LTG) Pt to decrease DHI score by at least 29% to a maximum of 25% disability. LTG Duration 10/07/22 Assessment Summary Assessment Bilaterally positive today with Hallpike testing, focused treatment more on left side, which was a more severely positive test. Pt appears to be a more complicated case to clear for some reason, potentially due to unusual anatomical positioning or difficulty following post- Noris precautions. Further L testing was negative. Will require follow-up testing and CRM Physical Therapy Plan Frequency and Duration Frequency of Treatment 1-2x/week Duration of treatment (weeks) 6 Plan of Care Start Date 08/26/22 Plan of Care End Date 10/07/22 Therapeutic Interventions Therapeutic Interventions Balance Training,Canalithic Repositioning,Home Exercise Program,Neuromuscular Re- education,Therapeutic Activities,Therapeutic Exercises,Vestibular Rehabilitation Next Visit Focus/Plan Next Note Type Treatment Note Next Visit Plan Positional testing and CRM as indicated
--- NOTE | 2022-09-27 10:28 | PT.OTN ---
Current Diagnoses Benign paroxysmal vertigo, left ear (09/27/22) Dizziness and giddiness (09/27/22) Physical Therapy Treatment Note PT-OP-A Visit Information Start: 08/26/22 15:18 Freq: Status: Active Protocol: Document 09/27/22 09:45 DCW (Rec: 09/27/22 10:28 DCW [id number]) Out-Patient Physical Therapy Visit Information Visit Information Visit Type Treatment Note Visit Start Time 09:45 Visit Stop Time 10:20 Total Visit Minutes 40 Visit Number 4 Number of SR RISK MANAGEMENT CONSULTANT Visits 0 Evaluation Information Evaluation Date 08/26/22 PT-OP-B Current Condition Start: 08/26/22 15:18 Freq: Status: Active Protocol: Document 08/26/22 13:45 DCW (Rec: 08/26/22 15:36 DCW [id number]) Current Condition History of Current Condition Onset Date 13 months Current Complaints Positional vertigo History of Current Condition Pt is a 67 year old female complaining of a 13 month history of motion-induced vertigo and imbalance. Pt reports episodes last seconds . Symptoms are provoked by lying down or sitting up in bed. Pt reports that she was treated four separate times in July and August 2021, and September 2021 at a different clinic for these same symptoms, reports that symptoms decreased in severity , however she doesn't think it ever truly went away. Does note that recently she has felt much more of a low-level instability when up moving around on her feet. Prior Treatments and Tests Noris maneuver x4 11-13 months ago at a different clinic PT-OP-C Subjective Start: 08/26/22 15:18 Freq: Status: Active Protocol: Document 09/27/22 09:45 DCW (Rec: 09/27/22 10:28 DCW [id number]) OP-PT Subjective Patient Comments Patient Comments Pt notes she continues to be symptomatic. Notes that it is about the same. PT-OP-O Vestibular Start: 08/26/22 15:18 Freq: Status: Active Protocol: Document 09/27/22 09:45 DCW (Rec: 09/27/22 10:28 DCW [id number]) Vestibular Assessment Positional Testing Shab[place]-Hallpike Positive Right,Negative Left, Upbeating,< 60 Seconds PT-OP-Q Treatments Start: 08/26/22 15:18 Freq: Status: Active Protocol: Document 09/27/22 09:45 DCW (Rec: 09/27/22 10:28 DCW [id number]) Canalithic Repositioning BPPV Treatment Gufoni Affected Canal(s) Right horizontal Reps x1 Noris Affected Canal(s) Right posterior Reps x1 Comments Modified Noris PT-OP-T Assessment and Plan Start: 08/26/22 15:18 Freq: Status: Active Protocol: Document 09/27/22 09:45 DCW (Rec: 09/27/22 10:28 DC [id number]) Physical Therapy Assessment Impairments Impairments Balance,Vestibular Goals Two Impairment Pt reports subjective dizziness with positional changes in bed Home Stereo Equipment Installer Goal (LTG) Pt to perform bed mobility with no symptoms of vertigo LTG Duration 10/07/22 One Impairment Pt scores a 54% handicap on the Dizziness Handicap Inventory Home Stereo Equipment Installer Goal (LTG) Pt to decrease DHI score by at least 29% to a maximum of 25% disability. LTG Duration 10/07/22 Assessment Summary Assessment Left [place]-Hallpike negative today. Right positive for posterior canal BPPV, canalithiasis-type. Modified R Noris was performed. Second [place]-Hallpike test showed severe horizontal, geotropic nystagmus, with associated nausea/vomiting, indicating conversion to horizontal canal BPPV, canalithiasis-type. Attempted Gufoni maneuver, pt able to maintain positioning relatively well, but did begin vomiting once again, but requested to continue maneuver . Recommend follow-up within the next week. Physical Therapy Plan Frequency and Duration Frequency of Treatment 1-2x/week Duration of treatment (weeks) 6 Plan of Care Start Date 08/26/22 Plan of Care End Date 10/07/22 Therapeutic Interventions Therapeutic Interventions Balance Training,Canalithic Repositioning,Home Exercise Program,Neuromuscular Re- education,Therapeutic Activities,Therapeutic Exercises,Vestibular Rehabilitation Next Visit Focus/Plan Next Note Type Treatment Note Next Visit Plan Positional testing and CRM as indicated
--- NOTE | 2022-10-03 12:23 | PT.OTN ---
Current Diagnoses Benign paroxysmal vertigo, left ear (10/03/22) Dizziness and giddiness (10/03/22) Physical Therapy Treatment Note PT-OP-A Visit Information Start: 08/26/22 15:18 Freq: Status: Active Protocol: Document 10/03/22 12:00 DCW (Rec: 10/03/22 12:22 DCW [id number]) Out-Patient Physical Therapy Visit Information Visit Information Visit Type Treatment Note Visit Start Time 12:00 Visit Stop Time 12:20 Total Visit Minutes 20 Visit Number 5 Number of SCREEN PRINTING LOADER UNLOADER Visits 0 Evaluation Information Evaluation Date 08/26/22 PT-OP-B Current Condition Start: 08/26/22 15:18 Freq: Status: Active Protocol: Document 08/26/22 13:45 DCW (Rec: 08/26/22 15:36 DCW [id number]) Current Condition History of Current Condition Onset Date 13 months Current Complaints Positional vertigo History of Current Condition Pt is a 67 year old female complaining of a 13 month history of motion-induced vertigo and imbalance. Pt reports episodes last seconds . Symptoms are provoked by lying down or sitting up in bed. Pt reports that she was treated four separate times in July and August 2021, and September 2021 at a different clinic for these same symptoms, reports that symptoms decreased in severity , however she doesn't think it ever truly went away. Does note that recently she has felt much more of a low-level instability when up moving around on her feet. Prior Treatments and Tests Noris maneuver x4 11-13 months ago at a different clinic PT-OP-C Subjective Start: 08/26/22 15:18 Freq: Status: Active Protocol: Document 10/03/22 12:00 DCW (Rec: 10/03/22 12:22 DCW [id number]) OP-PT Subjective Patient Comments Patient Comments Pt feels she has been asymptomatic since last visit. PT-OP-O Vestibular Start: 08/26/22 15:18 Freq: Status: Active Protocol: Document 10/03/22 12:00 DCW (Rec: 10/03/22 12:22 DCW [id number]) Vestibular Assessment Positional Testing [place]-Hallpike Positive Left,Upbeating,< 60 Seconds PT-OP-Q Treatments Start: 08/26/22 15:18 Freq: Status: Active Protocol: Document 10/03/22 12:00 DCW (Rec: 10/03/22 12:22 DCW [id number]) Canalithic Repositioning BPPV Treatment Noris Affected Canal(s) Left posterior Reps x2 Comments Modified Noris PT-OP-T Assessment and Plan Start: 08/26/22 15:18 Freq: Status: Active Protocol: Document 10/03/22 12:00 DCW (Rec: 10/03/22 12:22 DCW [id number]) Physical Therapy Assessment Impairments Impairments Balance,Vestibular Goals Two Impairment Pt reports subjective dizziness with positional changes in bed Flame Burner Goal (LTG) Pt to perform bed mobility with no symptoms of vertigo LTG Duration 10/07/22 One Impairment Pt scores a 54% handicap on the Dizziness Handicap Inventory [facility] Goal (LTG) Pt to decrease DHI score by at least 29% to a maximum of 25% disability. LTG Duration 10/07/22 Assessment Summary Assessment Left [place]-Hallpike positive for posterior canal BPPV, canalithiasis-type. Modified L Noris was performed. Pt complained of symptoms in the first and third position, which is normally indicative of a successful treatment. Further positional testing was negative. Physical Therapy Plan Frequency and Duration Frequency of Treatment 1-2x/week Duration of treatment (weeks) 6 Plan of Care Start Date 08/26/22 Plan of Care End Date 10/07/22 Therapeutic Interventions Therapeutic Interventions Balance Training,Canalithic Repositioning,Home Exercise Program,Neuromuscular Re- education,Therapeutic Activities,Therapeutic Exercises,Vestibular Rehabilitation Next Visit Focus/Plan Next Note Type Treatment Note Next Visit Plan Positional testing and CRM as indicated
--- NOTE | 2022-10-05 15:33 | PT.OTN ---
Current Diagnoses Benign paroxysmal vertigo, left ear (10/05/22) Dizziness and giddiness (10/05/22) Physical Therapy Treatment Note PT-OP-A Visit Information Start: 08/26/22 15:18 Freq: Status: Active Protocol: Document 10/05/22 15:15 DCW (Rec: 10/05/22 15:32 DCW [id number]) Out-Patient Physical Therapy Visit Information Visit Information Visit Type Discharge Summary Visit Start Time 15:15 Visit Stop Time 15:30 Total Visit Minutes 15 Visit Number 6 Number of HEAVY FORGER HELPER Visits 0 Evaluation Information Evaluation Date 08/26/22 PT-OP-B Current Condition Start: 08/26/22 15:18 Freq: Status: Active Protocol: Document 08/26/22 13:45 DCW (Rec: 08/26/22 15:36 DCW [id number]) Current Condition History of Current Condition Onset Date 13 months Current Complaints Positional vertigo History of Current Condition Pt is a 67 year old female complaining of a 13 month history of motion-induced vertigo and imbalance. Pt reports episodes last seconds . Symptoms are provoked by lying down or sitting up in bed. Pt reports that she was treated four separate times in July and August 2021, and September 2021 at a different clinic for these same symptoms, reports that symptoms decreased in severity , however she doesn't think it ever truly went away. Does note that recently she has felt much more of a low-level instability when up moving around on her feet. Prior Treatments and Tests Noris maneuver x4 11-13 months ago at a different clinic PT-OP-C Subjective Start: 08/26/22 15:18 Freq: Status: Active Protocol: Document 10/05/22 15:15 DCW (Rec: 10/05/22 15:32 DCW [id number]) OP-PT Subjective Patient Comments Patient Comments Pt reports she has been feeling good, but it's only been a few days. PT-OP-O Vestibular Start: 08/26/22 15:18 Freq: Status: Active Protocol: Document 10/05/22 15:15 DCW (Rec: 10/05/22 15:32 DCW [id number]) Vestibular Assessment Positional Testing [place]-Hallpike Negative Left,Negative Right PT-OP-Q Treatments Start: 08/26/22 15:18 Freq: Status: Active Protocol: Document 10/03/22 12:00 DCW (Rec: 10/03/22 12:22 DCW [id number]) Canalithic Repositioning BPPV Treatment Noris Affected Canal(s) Left posterior Reps x2 Comments Modified Noris PT-OP-T Assessment and Plan Start: 08/26/22 15:18 Freq: Status: Active Protocol: Document 10/05/22 15:15 DCW (Rec: 10/05/22 15:32 DCW [id number]) Physical Therapy Assessment Impairments Impairments Balance,Vestibular Goals Two Impairment Pt reports subjective dizziness with positional changes in bed Fpc Goal (LTG) Pt to perform bed mobility with no symptoms of vertigo LTG Duration Met One Impairment Pt scores a 54% handicap on the Dizziness Handicap Inventory Ice Bag Assembler Goal (LTG) Pt to decrease DHI score by at least 29% to a maximum of 25% disability. LTG Duration 10/07/22 Assessment Summary Assessment Pt reporting no symptoms since last visit, positional testing completely negative at this time. BPPV appears to be resolved, pt will be discharged from vestibular therapy. Pt understands potential for recurrence of BPPV, and that she would need a new referral in order to return in the future. Physical Therapy Plan Frequency and Duration Frequency of Treatment 1-2x/week Duration of treatment (weeks) 6 Plan of Care Start Date 08/26/22 Plan of Care End Date 10/07/22 Therapeutic Interventions Therapeutic Interventions Balance Training,Canalithic Repositioning,Home Exercise Program,Neuromuscular Re- education,Therapeutic Activities,Therapeutic Exercises,Vestibular Rehabilitation Next Visit Focus/Plan Next Note Type Treatment Note Next Visit Plan Positional testing and CRM as indicated
== END 2022-10-06 13:23 | disposition home or self-care (01) ==
LOC: PHYS 15:15
PROVIDERS: Family Provider Family Medicine; PCP Family Medicine; Referring Provider Family Medicine; Visit Provider Family Medicine
DX: H81.12 Benign paroxysmal vertigo, left ear (principal)
CPT/HCPCS: 95992; 97140; 97161

== ENCOUNTER 2023-05-17 14:45 | Outpatient (RCR) | payer MEDICARE, BC, SELFPAY ==
--- NOTE | 2023-04-28 15:57 | PT.OIE ---
Current Diagnoses Benign paroxysmal vertigo, unspecified ear (04/28/23) Nausea with vomiting, unspecified (04/28/23) Dizziness and giddiness (04/28/23) Visit Care Team Role Provider Type Yoav Gunn MD Attending Provider Non-Staff Family Provider Primary Care Provider Referring Provider Specialty: Family Practice Address: [address] [place] [address], [phone] Email: Physical Therapy Initial Evaluation PT-OP-A Visit Information Start: 04/28/23 15:34 Freq: Status: Active Protocol: Document 04/28/23 10:30 DCW (Rec: 04/28/23 15:47 DCW [id number]) Out-Patient Physical Therapy Visit Information Visit Information Visit Type Initial Evaluation Visit Start Time 10:30 Visit Stop Time 11:15 Total Visit Minutes 45 Visit Number 1 Number of FIG WASHER Visits 0 Evaluation Information Evaluation Date 04/28/23 PT-OP-B Current Condition Start: 04/28/23 15:34 Freq: Status: Active Protocol: Document 04/28/23 10:30 DCW (Rec: 04/28/23 15:47 DCW [id number]) Current Condition History of Current Condition Onset Date Two months Current Complaints Positional lightheadedness History of Current Condition Pt is a 67 year old female complaining of a two month history of motion-induced vertigo and light-headedness. Pt reports symptoms are provoked by bending forward. Pt has previously been successfully treated at this clinic for BPPV, and notes that her symptoms feels somewhat like they have in the past, but it is not nearly as severe, and feels more like a light-headedness rather than a true vertigo. Pt denies any change in her health since her last vestibular assessment. PT-OP-C Subjective Start: 04/28/23 15:34 Freq: Status: Active Protocol: Document 04/28/23 10:30 DCW (Rec: 04/28/23 15:47 DCW [id number]) OP-PT Subjective Patient Comments Patient Comments It's much dining room busser this time, I can handle it, but it does catch me off guard. Patient Questionnaires Dizziness Handicap Inventory DHI Score 40% DHI Functional Impairment 40 to 59% Impaired (Score 40- 59) PT-OP-O Vestibular Start: 04/28/23 15:34 Freq: Status: Active Protocol: Document 04/28/23 10:30 DCW (Rec: 04/28/23 15:47 DCW [id number]) Vestibular Assessment Screening Tests Vestibular Artery Screen Negative Visual Testing Smooth Pursuits Horizontal WNL Smooth Pursuits Vertical WNL Saccades Horizontal WNL Positional Testing [place]-Hallpike Positive Left,Upbeating,< 60 Seconds PT-OP-T Assessment and Plan Start: 04/28/23 15:34 Freq: Status: Active Protocol: Document 04/28/23 10:30 DCW (Rec: 04/28/23 15:57 DCW [id number]) Physical Therapy Assessment Rehab Potential Rehabilitation Potential Good Evaluation Complexity Number of Personal Factors/Comorbidities 1-2 Number of Body Systems Impaired 1-2 Clinical Presentation at Evaluation Unstable Impairments Impairments Activity Tolerance,Balance, Vestibular Goals Two Impairment Pt became symptomatic and nauseated in left [place]-Hallpike Reed Worker Goal (LTG) Pt to test negative bilaterally with all positional testing LTG Duration 06/12/23 One Impairment Pt reports vertigo/ lightheadedness with positional changes Short Term Goal (STG) Pt to tolerate all bed mobility with no increase in symptoms STG Duration 05/12/23 Assessment Summary Assessment Pt reported mild lightheadedness following a 20 second latency period in left [place]-Hallpike position, but had no associated nystagmus. In right [place]- Hallpike, pt was asymptomatic. During left roll test, pt again complained of light- headedness, but demonstrated upbeating, torsional nystagmus for 20 seconds. After this faded, attempted left [place]- Hallpike again to see if nystagmus returned. Pt suddenly became very dizzy, reported she was feeling nauseated, and then had to sit up and vomited. Afterward, pt was given some water, sat and waited around for a little, determined she did not want to attempt treatment on this day . As she got up to leave, she became nauseated once again, and again vomited. After this second round, she noted feeling much better, and her stomach was settled. Agreeable to return to vestibular PT for her next visit to attempt an Noris. Pt's subjective symptoms and testing today are somewhat suggestive of recurrence of BPPV. If pt is able to tolerate further testing and CRM, will likely benefit from vestibular intervention. Physical Therapy Plan Frequency and Duration Frequency of Treatment 1-2x/week Plan of Care Start Date 04/28/23 Plan of Care End Date 06/12/23 Therapeutic Interventions Therapeutic Interventions Balance Training,Canalithic Repositioning,Coordination Training,Home Exercise Program ,Manual Therapy,Neuromuscular Re-education,Vestibular Rehabilitation Next Visit Focus/Plan Next Note Type Treatment Note Next Visit Plan Positional testing, CRM as indicated
--- NOTE | 2023-04-28 15:58 | PT.OPPOC ---
Physical, Occupational & Speech Therapy At [facility] Current Diagnoses Benign paroxysmal vertigo, unspecified ear (04/28/23) Nausea with vomiting, unspecified (04/28/23) Dizziness and giddiness (04/28/23) Visit Care Team Role Provider Type Yoav Gunn MD Attending Provider Non-Staff Family Provider Primary Care Provider Referring Provider Specialty: Family Practice Address: [address] [place] [address], [phone] Email: Plan Of Care PT-OP-T Assessment and Plan Start: 04/28/23 15:34 Freq: Status: Active Protocol: Document 04/28/23 10:30 DCW (Rec: 04/28/23 15:57 DCW [id number]) Physical Therapy Assessment Rehab Potential Rehabilitation Potential Good Evaluation Complexity Number of Personal Factors/Comorbidities 1-2 Number of Body Systems Impaired 1-2 Clinical Presentation at Evaluation Unstable Impairments Impairments Activity Tolerance,Balance, Vestibular Goals Two Impairment Pt became symptomatic and nauseated in left [place]-Hallpike Chargeback Analyst Goal (LTG) Pt to test negative bilaterally with all positional testing LTG Duration 06/12/23 One Impairment Pt reports vertigo/ lightheadedness with positional changes Short Term Goal (STG) Pt to tolerate all bed mobility with no increase in symptoms STG Duration 05/12/23 Assessment Summary Assessment Pt reported mild lightheadedness following a 20 second latency period in left [place]-Hallpike position, but had no associated nystagmus. In right [place]- Hallpike, pt was asymptomatic. During left roll test, pt again complained of light- headedness, but demonstrated upbeating, torsional nystagmus for 20 seconds. After this faded, attempted left [place]- Hallpike again to see if nystagmus returned. Pt suddenly became very dizzy, reported she was feeling nauseated, and then had to sit up and vomited. Afterward, pt was given some water, sat and waited around for a little, determined she did not want to attempt treatment on this day . As she got up to leave, she became nauseated once again, and again vomited. After this second round, she noted feeling much better, and her stomach was settled. Agreeable to return to vestibular PT for her next visit to attempt an Noris. Pt's subjective symptoms and testing today are somewhat suggestive of recurrence of BPPV. If pt is able to tolerate further testing and CRM, will likely benefit from vestibular intervention. Physical Therapy Plan Frequency and Duration Frequency of Treatment 1-2x/week Plan of Care Start Date 04/28/23 Plan of Care End Date 06/12/23 Therapeutic Interventions Therapeutic Interventions Balance Training,Canalithic Repositioning,Coordination Training,Home Exercise Program ,Manual Therapy,Neuromuscular Re-education,Vestibular Rehabilitation Next Visit Focus/Plan Next Note Type Treatment Note Next Visit Plan Positional testing, CRM as indicated Plan of Care Dates Plan of Care Start Date 04/28/23 Plan of Care End Date 06/12/23 Electronically Signed by: Cortez Alcantar, PT 04/28/23 0606 If you are in agreement with this Plan of Care, please return a signed and dated copy. I have reviewed this Plan of Care and certify that the skilled therapy services above are required to meet the patient?s needs. Physician Signature Date Printed Name and Credentials Clinical Instructor Signature Printed Name and Credentials
--- NOTE | 2023-05-01 09:53 | PT.OTN ---
Current Diagnoses Benign paroxysmal vertigo, unspecified ear (05/01/23) Nausea with vomiting, unspecified (05/01/23) Dizziness and giddiness (05/01/23) Physical Therapy Treatment Note PT-OP-A Visit Information Start: 04/28/23 15:34 Freq: Status: Active Protocol: Document 05/01/23 09:30 DCW (Rec: 05/01/23 09:53 DCW [id number]) Out-Patient Physical Therapy Visit Information Visit Information Visit Type Treatment Note Visit Start Time 09:30 Visit Stop Time 09:47 Total Visit Minutes 17 Visit Number 2 Number of MATERIALS DEVELOPMENT ENGINEER Visits 0 Evaluation Information Evaluation Date 04/28/23 PT-OP-B Current Condition Start: 04/28/23 15:34 Freq: Status: Active Protocol: Document 04/28/23 10:30 DCW (Rec: 04/28/23 15:47 DCW [id number]) Current Condition History of Current Condition Onset Date Two months Current Complaints Positional lightheadedness History of Current Condition Pt is a 67 year old female complaining of a two month history of motion-induced vertigo and light-headedness. Pt reports symptoms are provoked by bending forward. Pt has previously been successfully treated at this clinic for BPPV, and notes that her symptoms feels somewhat like they have in the past, but it is not nearly as severe, and feels more like a light-headedness rather than a true vertigo. Pt denies any change in her health since her last vestibular assessment. PT-OP-C Subjective Start: 04/28/23 15:34 Freq: Status: Active Protocol: Document 05/01/23 09:30 DCW (Rec: 05/01/23 09:53 DCW [id number]) OP-PT Subjective Patient Comments Patient Comments Monday was a very bad day. I kept throwing up for about an hour after my appointment. PT-OP-O Vestibular Start: 04/28/23 15:34 Freq: Status: Active Protocol: Document 05/01/23 09:30 DCW (Rec: 05/01/23 09:53 DCW [id number]) Vestibular Assessment Positional Testing [place]-Hallpike Positive Left,Upbeating,< 60 Seconds PT-OP-Q Treatments Start: 04/28/23 15:34 Freq: Status: Active Protocol: Document 05/01/23 09:30 DCW (Rec: 05/01/23 09:53 DCW [id number]) Canalithic Repositioning BPPV Treatment Noris Affected Canal(s) Left posterior Reps x1 Comments Modified Noris PT-OP-T Assessment and Plan Start: 04/28/23 15:34 Freq: Status: Active Protocol: Document 05/01/23 09:30 DCW (Rec: 05/01/23 09:53 DCW [id number]) Physical Therapy Assessment Impairments Impairments Activity Tolerance,Balance, Vestibular Goals Two Impairment Pt became symptomatic and nauseated in left [place]-Hallpike Fpc Goal (LTG) Pt to test negative bilaterally with all positional testing LTG Duration 06/12/23 One Impairment Pt reports vertigo/ lightheadedness with positional changes Short Term Goal (STG) Pt to tolerate all bed mobility with no increase in symptoms STG Duration 05/12/23 Assessment Summary Assessment Pt reported mild lightheadedness following a 20 second latency period in left [place]-Hallpike position, with very light up-beating, torsional nystagmus. Pt was treated with a left-sided modified Noris maneuver. Pt tolerated this CRM well today. Due to her extreme reaction of severe nausea and vomiting during her evaluation, therapist and patient agreed to take it a little easy and end session early. Physical Therapy Plan Frequency and Duration Frequency of Treatment 1-2x/week Plan of Care Start Date 04/28/23 Plan of Care End Date 06/12/23 Therapeutic Interventions Therapeutic Interventions Balance Training,Canalithic Repositioning,Coordination Training,Home Exercise Program ,Manual Therapy,Neuromuscular Re-education,Vestibular Rehabilitation Next Visit Focus/Plan Next Note Type Treatment Note Next Visit Plan Positional testing, CRM as indicated
--- NOTE | 2023-05-03 14:20 | PT.OTN ---
Current Diagnoses Benign paroxysmal vertigo, unspecified ear (05/03/23) Nausea with vomiting, unspecified (05/03/23) Dizziness and giddiness (05/03/23) Physical Therapy Treatment Note PT-OP-A Visit Information Start: 04/28/23 15:34 Freq: Status: Active Protocol: Document 05/03/23 14:00 DCW (Rec: 05/03/23 14:19 DCW [id number]) Out-Patient Physical Therapy Visit Information Visit Information Visit Type Treatment Note Visit Start Time 14:00 Visit Stop Time 14:15 Total Visit Minutes 15 Visit Number 3 Number of PROFESSOR OF PHYSICS Visits 0 Evaluation Information Evaluation Date 04/28/23 PT-OP-B Current Condition Start: 04/28/23 15:34 Freq: Status: Active Protocol: Document 04/28/23 10:30 DCW (Rec: 04/28/23 15:47 DCW [id number]) Current Condition History of Current Condition Onset Date Two months Current Complaints Positional lightheadedness History of Current Condition Pt is a 67 year old female complaining of a two month history of motion-induced vertigo and light-headedness. Pt reports symptoms are provoked by bending forward. Pt has previously been successfully treated at this clinic for BPPV, and notes that her symptoms feels somewhat like they have in the past, but it is not nearly as severe, and feels more like a light-headedness rather than a true vertigo. Pt denies any change in her health since her last vestibular assessment. PT-OP-C Subjective Start: 04/28/23 15:34 Freq: Status: Active Protocol: Document 05/03/23 14:00 DCW (Rec: 05/03/23 14:19 DCW [id number]) OP-PT Subjective Patient Comments Patient Comments When I left here Monday, I had to take it easy, I still wasn't feeling quite myself. I 'm still just a little lightheaded. PT-OP-O Vestibular Start: 04/28/23 15:34 Freq: Status: Active Protocol: Document 05/03/23 14:00 DCW (Rec: 05/03/23 14:19 DCW [id number]) Vestibular Assessment Positional Testing [place]-Hallpike Negative Left,Negative Right PT-OP-Q Treatments Start: 04/28/23 15:34 Freq: Status: Active Protocol: Document 05/01/23 09:30 DCW (Rec: 05/01/23 09:53 DCW [id number]) Canalithic Repositioning BPPV Treatment Noris Affected Canal(s) Left posterior Reps x1 Comments Modified Noris PT-OP-T Assessment and Plan Start: 04/28/23 15:34 Freq: Status: Active Protocol: Document 05/03/23 14:00 DCW (Rec: 05/03/23 14:19 DCW [id number]) Physical Therapy Assessment Impairments Impairments Activity Tolerance,Balance, Vestibular Goals Two Impairment Pt became symptomatic and nauseated in left [place]-Hallpike Chemistry Instructor Goal (LTG) Pt to test negative bilaterally with all positional testing LTG Duration 06/12/23 One Impairment Pt reports vertigo/ lightheadedness with positional changes Short Term Goal (STG) Pt to tolerate all bed mobility with no increase in symptoms STG Duration 05/12/23 Assessment Summary Assessment Positional testing entirely negative today, pt feeling much better. Plans to keep scheduled appointment in two weeks, will cancel closer to appointment time if symptoms do not return. Physical Therapy Plan Frequency and Duration Frequency of Treatment 1-2x/week Plan of Care Start Date 04/28/23 Plan of Care End Date 06/12/23 Therapeutic Interventions Therapeutic Interventions Balance Training,Canalithic Repositioning,Coordination Training,Home Exercise Program ,Manual Therapy,Neuromuscular Re-education,Vestibular Rehabilitation Next Visit Focus/Plan Next Note Type Treatment Note Next Visit Plan Positional testing, CRM as indicated
--- NOTE | 2023-05-17 15:02 | PT.OTN ---
Current Diagnoses Benign paroxysmal vertigo, unspecified ear (05/17/23) Nausea with vomiting, unspecified (05/17/23) Dizziness and giddiness (05/17/23) Physical Therapy Treatment Note PT-OP-A Visit Information Start: 04/28/23 15:34 Freq: Status: Active Protocol: Document 05/17/23 14:50 DCW (Rec: 05/17/23 15:02 DCW [id number]) Out-Patient Physical Therapy Visit Information Visit Information Visit Type Discharge Summary Visit Start Time 14:50 Visit Stop Time 15:00 Total Visit Minutes 10 Visit Number 4 Number of DIRECTOR OF CASEWORK Visits 0 Evaluation Information Evaluation Date 04/28/23 PT-OP-B Current Condition Start: 04/28/23 15:34 Freq: Status: Active Protocol: Document 04/28/23 10:30 DCW (Rec: 04/28/23 15:47 DCW [id number]) Current Condition History of Current Condition Onset Date Two months Current Complaints Positional lightheadedness History of Current Condition Pt is a 67 year old female complaining of a two month history of motion-induced vertigo and light-headedness. Pt reports symptoms are provoked by bending forward. Pt has previously been successfully treated at this clinic for BPPV, and notes that her symptoms feels somewhat like they have in the past, but it is not nearly as severe, and feels more like a light-headedness rather than a true vertigo. Pt denies any change in her health since her last vestibular assessment. PT-OP-C Subjective Start: 04/28/23 15:34 Freq: Status: Active Protocol: Document 05/17/23 14:50 DCW (Rec: 05/17/23 15:02 DCW [id number]) OP-PT Subjective Patient Comments Patient Comments I'm feeling better, I just wanted to come in and play it safe. PT-OP-O Vestibular Start: 04/28/23 15:34 Freq: Status: Active Protocol: Document 05/17/23 14:50 DCW (Rec: 05/17/23 15:02 DCW [id number]) Vestibular Assessment Positional Testing [place]-Hallpike Negative Left,Negative Right Rolling Test Negative Left,Negative Right PT-OP-Q Treatments Start: 04/28/23 15:34 Freq: Status: Active Protocol: Document 05/01/23 09:30 DCW (Rec: 05/01/23 09:53 DCW [id number]) Canalithic Repositioning BPPV Treatment Noris Affected Canal(s) Left posterior Reps x1 Comments Modified Noris PT-OP-T Assessment and Plan Start: 04/28/23 15:34 Freq: Status: Active Protocol: Document 05/17/23 14:50 DCW (Rec: 05/17/23 15:02 DCW [id number]) Physical Therapy Assessment Impairments Impairments Activity Tolerance,Balance, Vestibular Goals Two Impairment Pt became symptomatic and nauseated in left [place]-Hallpike Chcf Goal (LTG) Pt to test negative bilaterally with all positional testing LTG Duration Met One Impairment Pt reports vertigo/ lightheadedness with positional changes Short Term Goal (STG) Pt to tolerate all bed mobility with no increase in symptoms STG Duration Met Progress Towards Goals Progress Towards Goals Goals Met Assessment Summary Assessment Positional testing once again entirely negative. Pt feeling more confident in fact that BPPV is controlled at this time. Agreeable to discharge. Physical Therapy Plan Frequency and Duration Frequency of Treatment 1-2x/week Plan of Care Start Date 04/28/23 Plan of Care End Date 06/12/23 Therapeutic Interventions Therapeutic Interventions Balance Training,Canalithic Repositioning,Coordination Training,Home Exercise Program ,Manual Therapy,Neuromuscular Re-education,Vestibular Rehabilitation Discharge Physical Therapy Discharge Reasons Goals Met Next Visit Focus/Plan Next Note Type Discharge Summary
== END 2023-05-23 14:27 | disposition home or self-care (01) ==
LOC: PHYS 14:45
PROVIDERS: Family Provider Family Medicine; PCP Family Medicine; Referring Provider Family Medicine; Visit Provider Family Medicine
DX: H81.10 Benign paroxysmal vertigo, unspecified ear (principal); R11.2 Nausea with vomiting, unspecified
CPT/HCPCS: 95992; 97140; 97162

== ENCOUNTER 2023-10-16 15:15 | Outpatient (RCR) | payer MEDICARE, BC, SELFPAY ==
--- NOTE | 2023-07-05 14:37 | PT.OIE ---
Current Diagnoses Benign paroxysmal vertigo, unspecified ear (07/05/23) Vertigo of central origin (07/05/23) Nausea with vomiting, unspecified (07/05/23) Unsteadiness on feet (07/05/23) Dizziness and giddiness (07/05/23) Visit Care Team Role Provider Type Yoav Gunn MD Attending Provider Non-Staff Family Provider Primary Care Provider Referring Provider Specialty: Family Practice Address: [address] [place] [address], [phone] Email: Physical Therapy Initial Evaluation PT-OP-A Visit Information Start: 07/05/23 14:22 Freq: Status: Active Protocol: Document 07/05/23 12:45 DCW (Rec: 07/05/23 14:37 DCW [id number]) Out-Patient Physical Therapy Visit Information Visit Information Visit Type Initial Evaluation Visit Start Time 12:45 Visit Stop Time 13:05 Total Visit Minutes 20 Visit Number 1 Number of TAPE RULES PRINTING MACHINE OPERATOR Visits 0 Evaluation Information Evaluation Date 07/05/23 PT-OP-B Current Condition Start: 07/05/23 14:22 Freq: Status: Active Protocol: Document 07/05/23 12:45 DCW (Rec: 07/05/23 14:37 DCW [id number]) Current Condition History of Current Condition Onset Date ~1 month Current Complaints Position-dependent vertigo History of Current Condition Pt is a 67 year old female well known to this clinic, coming in once again with recurrent position-dependent vertigo. Pt has been treated two separate times for BPPV at this clinic in the past year, and pt reports symptoms are exactly the same as usual, although maybe a little more frequent. Denies any other change in medical status since she was last seen. PT-OP-C Subjective Start: 07/05/23 14:22 Freq: Status: Active Protocol: Document 07/05/23 12:45 DCW (Rec: 07/05/23 14:37 DCW [id number]) OP-PT Subjective Patient Comments Patient Comments I was good for just about a month after my last session. Patient Questionnaires ABC- Activity Specific Balance Confidence Scale ABC Score 58.13% ABC Functional Impairment 40 to <60% Impaired (Score 41- 60) Dizziness Handicap Inventory DHI Score 60% DHI Functional Impairment 60 to 79% Impaired (Score 60- 79) PT-OP-O Vestibular Start: 07/05/23 14:22 Freq: Status: Active Protocol: Document 07/05/23 12:45 DCW (Rec: 07/05/23 14:37 DCW [id number]) Vestibular Assessment Positional Testing [place]-Hallpike Positive Left,Negative Right, Upbeating,< 60 Seconds Rolling Test Negative Left,Negative Right PT-OP-T Assessment and Plan Start: 07/05/23 14:22 Freq: Status: Active Protocol: Document 07/05/23 12:45 DCW (Rec: 07/05/23 14:37 DCW [id number]) Physical Therapy Assessment Rehab Potential Rehabilitation Potential Good Evaluation Complexity Number of Personal Factors/Comorbidities 1-2 Number of Body Systems Impaired 3 Clinical Presentation at Evaluation Unstable Impairments Impairments Balance,Coordination, Functional Activities, Functional Mobility,Vestibular Goals Two Impairment Positive left [place]-Hallpike test Mcc Goal (LTG) Pt to exhibit negative positional testing bilaterally LTG Duration 09/04/23 One Impairment Pt experiences vertigo and nausea with position changes in bed Short Term Goal (STG) Pt to report no episodes of vertigo with any bed mobility for a full week. STG Duration 08/05/23 Assessment Summary Assessment Pt presents once again with subjective complaints suggestive of recurrent BPPV. Pt has been successfully treated short-term in the past , however always seems to suffer a recurrence over the course of a month or two. Pt is also typically very sensitive to testing, typically with nausea and vomiting present, today being no exception. Pt came into the clinic today feeling it was worse on her right side, so a left [place]-Hallpike was performed first. 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 Both subjective symptoms and nystagmus, however, were much less severe than pt typically exhibits. Therefore, therapist though it would be beneficial to complete testing prior to attempting left modified Noris . right Shabnam-Hallpike and bilateral roll testing were all negative, so attempted to perform a left modified Noris. When putting pt back into the first position, she became overheated, and felt nauseated . Pt immediately sat up, was handed a bag, and began vomiting. Nausea/vomiting subsided, however at this point, pt did not feel she could continue with any further testing or treatment, and agreed to return to vestibular therapy on her next scheduled visit (currently ) to complete testing and CRM as indicated. Physical Therapy Plan Frequency and Duration Frequency of Treatment 2x/Week Plan of Care Start Date 07/05/23 Plan of Care End Date 09/04/23 Therapeutic Interventions Therapeutic Interventions Balance Training,Canalithic Repositioning,Coordination Training,Patient/Caregiver Education,Self-Care/Home Management,Therapeutic Activities,Therapeutic Exercises,Vestibular Rehabilitation Next Visit Focus/Plan Next Note Type Treatment Note Next Visit Plan Positional testing, CRM as indicated
--- NOTE | 2023-07-05 14:37 | PT.OPPOC ---
Physical, Occupational & Speech Therapy At [facility] Current Diagnoses Benign paroxysmal vertigo, unspecified ear (07/05/23) Vertigo of central origin (07/05/23) Nausea with vomiting, unspecified (07/05/23) Unsteadiness on feet (07/05/23) Dizziness and giddiness (07/05/23) Visit Care Team Role Provider Type Yoav Gunn MD Attending Provider Non-Staff Family Provider Primary Care Provider Referring Provider Specialty: Family Practice Address: [address] [place] [address], [phone] Email: Plan Of Care PT-OP-T Assessment and Plan Start: 07/05/23 14:22 Freq: Status: Active Protocol: Document 07/05/23 12:45 DCW (Rec: 07/05/23 14:37 DCW [id number]) Physical Therapy Assessment Rehab Potential Rehabilitation Potential Good Evaluation Complexity Number of Personal Factors/Comorbidities 1-2 Number of Body Systems Impaired 3 Clinical Presentation at Evaluation Unstable Impairments Impairments Balance,Coordination, Functional Activities, Functional Mobility,Vestibular Goals Two Impairment Positive left Shabnam-Hallpike test Long-Term Goal (LTG) Pt to exhibit negative positional testing bilaterally LTG Duration 09/04/23 One Impairment Pt experiences vertigo and nausea with position changes in bed Short Term Goal (STG) Pt to report no episodes of vertigo with any bed mobility for a full week. STG Duration 08/05/23 Assessment Summary Assessment Pt presents once again with subjective complaints suggestive of recurrent BPPV. Pt has been successfully treated short-term in the past , however always seems to suffer a recurrence over the course of a month or two. Pt is also typically very sensitive to testing, typically with nausea and vomiting present, today being no exception. Pt came into the clinic today feeling it was worse on her right side, so a left [place]-Hallpike was performed first. 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 Both subjective symptoms and nystagmus, however, were much less severe than pt typically exhibits. Therefore, therapist though it would be beneficial to complete testing prior to attempting left modified Noris . right [place]-Hallpike and bilateral roll testing were all negative, so attempted to perform a left modified Noris. When putting pt back into the first position, she became overheated, and felt nauseated . Pt immediately sat up, was handed a bag, and began vomiting. Nausea/vomiting subsided, however at this point, pt did not feel she could continue with any further testing or treatment, and agreed to return to vestibular therapy on her next scheduled visit (currently ) to complete testing and CRM as indicated. Physical Therapy Plan Frequency and Duration Frequency of Treatment 2x/Week Plan of Care Start Date 07/05/23 Plan of Care End Date 09/04/23 Therapeutic Interventions Therapeutic Interventions Balance Training,Canalithic Repositioning,Coordination Training,Patient/Caregiver Education,Self-Care/Home Management,Therapeutic Activities,Therapeutic Exercises,Vestibular Rehabilitation Next Visit Focus/Plan Next Note Type Treatment Note Next Visit Plan Positional testing, CRM as indicated Plan of Care Dates Plan of Care Start Date 07/05/23 Plan of Care End Date 09/04/23 Electronically Signed by: Cortez Alcantar, PT 07/05/23 4215 If you are in agreement with this Plan of Care, please return a signed and dated copy. I have reviewed this Plan of Care and certify that the skilled therapy services above are required to meet the patient?s needs. Physician Signature Date Printed Name and Credentials Clinical Instructor Signature Printed Name and Credentials
--- NOTE | 2023-07-11 12:18 | PT.OTN ---
Current Diagnoses Benign paroxysmal vertigo, unspecified ear (07/11/23) Vertigo of central origin (07/11/23) Nausea with vomiting, unspecified (07/11/23) Unsteadiness on feet (07/11/23) Dizziness and giddiness (07/11/23) Physical Therapy Treatment Note PT-OP-A Visit Information Start: 07/05/23 14:22 Freq: Status: Active Protocol: Document 07/11/23 12:00 DCW (Rec: 07/11/23 12:18 DCW [id number]) Out-Patient Physical Therapy Visit Information Visit Information Visit Type Treatment Note Visit Start Time 12:00 Visit Stop Time 12:15 Total Visit Minutes 15 Visit Number 2 Number of SYSTEMS PROGRAMMER ANALYST Visits 0 Evaluation Information Evaluation Date 07/05/23 PT-OP-B Current Condition Start: 07/05/23 14:22 Freq: Status: Active Protocol: Document 07/05/23 12:45 DCW (Rec: 07/05/23 14:37 DCW [id number]) Current Condition History of Current Condition Onset Date ~1 month Current Complaints Position-dependent vertigo History of Current Condition Pt is a 67 year old female well known to this clinic, coming in once again with recurrent position-dependent vertigo. Pt has been treated two separate times for BPPV at this clinic in the past year, and pt reports symptoms are exactly the same as usual, although maybe a little more frequent. Denies any other change in medical status since she was last seen. PT-OP-C Subjective Start: 07/05/23 14:22 Freq: Status: Active Protocol: Document 07/11/23 12:00 DCW (Rec: 07/11/23 12:18 DCW [id number]) OP-PT Subjective Patient Comments Patient Comments Pt reports she is still quite symptomatic PT-OP-O Vestibular Start: 07/05/23 14:22 Freq: Status: Active Protocol: Document 07/11/23 12:00 DCW (Rec: 07/11/23 12:18 DCW [id number]) Vestibular Assessment Positional Testing [place]-Hallpike Positive Left,Upbeating,< 60 Seconds PT-OP-Q Treatments Start: 07/05/23 14:22 Freq: Status: Active Protocol: Document 07/11/23 12:00 DCW (Rec: 07/11/23 12:18 DCW [id number]) Canalithic Repositioning BPPV Treatment Noris Affected Canal(s) Left posterior Reps x1 Comments Modified Noirs PT-OP-T Assessment and Plan Start: 07/05/23 14:22 Freq: Status: Active Protocol: Document 07/11/23 12:00 DCW (Rec: 07/11/23 12:18 DCW [id number]) Physical Therapy Assessment Impairments Impairments Balance,Coordination, Functional Activities, Functional Mobility,Vestibular Goals Two Impairment Positive left [place]-Hallpike test Paver Goal (LTG) Pt to exhibit negative positional testing bilaterally LTG Duration 09/04/23 One Impairment Pt experiences vertigo and nausea with position changes in bed Short Term Goal (STG) Pt to report no episodes of vertigo with any bed mobility for a full week. STG Duration 08/05/23 Assessment Summary Assessment Pt once again testing positive with left [place]-Hallpike. Much stronger nystagmus today, with no associated nausea. Pt able to tolerate left-sided modified Noris maneuver. Pt complained of symptoms in the first and third position, which is normally indicative of a successful treatment. Further positional testing not provided at this time, due to high patient anxiety. Physical Therapy Plan Frequency and Duration Frequency of Treatment 2x/Week Plan of Care Start Date 07/05/23 Plan of Care End Date 09/04/23 Therapeutic Interventions Therapeutic Interventions Balance Training,Canalithic Repositioning,Coordination Training,Patient/Caregiver Education,Self-Care/Home Management,Therapeutic Activities,Therapeutic Exercises,Vestibular Rehabilitation Next Visit Focus/Plan Next Note Type Treatment Note Next Visit Plan Positional testing, CRM as indicated
--- NOTE | 2023-07-14 12:44 | PT.OTN ---
Current Diagnoses Benign paroxysmal vertigo, unspecified ear (07/14/23) Vertigo of central origin (07/14/23) Nausea with vomiting, unspecified (07/14/23) Unsteadiness on feet (07/14/23) Dizziness and giddiness (07/14/23) Physical Therapy Treatment Note PT-OP-A Visit Information Start: 07/05/23 14:22 Freq: Status: Active Protocol: Document 07/14/23 12:15 DCW (Rec: 07/14/23 12:44 DCW [id number]) Out-Patient Physical Therapy Visit Information Visit Information Visit Type Treatment Note Visit Start Time 12:15 Visit Stop Time 12:40 Total Visit Minutes 25 Visit Number 3 Number of FORESTRY WORKER Visits 0 Evaluation Information Evaluation Date 07/05/23 PT-OP-B Current Condition Start: 07/05/23 14:22 Freq: Status: Active Protocol: Document 07/05/23 12:45 DCW (Rec: 07/05/23 14:37 DCW [id number]) Current Condition History of Current Condition Onset Date ~1 month Current Complaints Position-dependent vertigo History of Current Condition Pt is a 67 year old female well known to this clinic, coming in once again with recurrent position-dependent vertigo. Pt has been treated two separate times for BPPV at this clinic in the past year, and pt reports symptoms are exactly the same as usual, although maybe a little more frequent. Denies any other change in medical status since she was last seen. PT-OP-C Subjective Start: 07/05/23 14:22 Freq: Status: Active Protocol: Document 07/14/23 12:15 DCW (Rec: 07/14/23 12:44 DCW [id number]) OP-PT Subjective Patient Comments Patient Comments I'm feeling better than I was last time I was here. PT-OP-O Vestibular Start: 07/05/23 14:22 Freq: Status: Active Protocol: Document 07/14/23 12:15 DCW (Rec: 07/14/23 12:44 DCW [id number]) Vestibular Assessment Positional Testing [place]-Hallpike Positive Left,Upbeating,< 60 Seconds PT-OP-Q Treatments Start: 07/05/23 14:22 Freq: Status: Active Protocol: Document 07/14/23 12:15 DCW (Rec: 07/14/23 12:44 [facility] [id number]) Canalithic Repositioning BPPV Treatment Noris Affected Canal(s) Left posterior Reps x1 Comments Modified Noris PT-OP-T Assessment and Plan Start: 07/05/23 14:22 Freq: Status: Active Protocol: Document 07/14/23 12:15 DCW (Rec: 07/14/23 12:44 DCW [id number]) Physical Therapy Assessment Impairments Impairments Balance,Coordination, Functional Activities, Functional Mobility,Vestibular Goals Two Impairment Positive left [place]-Hallpike test Fpc Goal (LTG) Pt to exhibit negative positional testing bilaterally LTG Duration 09/04/23 One Impairment Pt experiences vertigo and nausea with position changes in bed Short Term Goal (STG) Pt to report no episodes of vertigo with any bed mobility for a full week. STG Duration 08/05/23 Assessment Summary Assessment Pt exhibiting very mild positive symptoms with left Shabnam-Hallpike. Pt able to tolerate left-sided modified Noris maneuver. Pt complained of symptoms in the first and third position, which is normally indicative of a successful treatment. Physical Therapy Plan Frequency and Duration Frequency of Treatment 2x/Week Plan of Care Start Date 07/05/23 Plan of Care End Date 09/04/23 Therapeutic Interventions Therapeutic Interventions Balance Training,Canalithic Repositioning,Coordination Training,Patient/Caregiver Education,Self-Care/Home Management,Therapeutic Activities,Therapeutic Exercises,Vestibular Rehabilitation Next Visit Focus/Plan Next Note Type Treatment Note Next Visit Plan Positional testing, CRM as indicated
--- NOTE | 2023-09-01 14:14 | PT.OTN ---
Current Diagnoses Benign paroxysmal vertigo, unspecified ear (09/01/23) Vertigo of central origin (09/01/23) Nausea with vomiting, unspecified (09/01/23) Unsteadiness on feet (09/01/23) Dizziness and giddiness (09/01/23) Physical Therapy Treatment Note PT-OP-A Visit Information Start: 07/05/23 14:22 Freq: Status: Active Protocol: Document 09/01/23 13:45 DCW (Rec: 09/01/23 14:14 DCW [id number]) Out-Patient Physical Therapy Visit Information Visit Information Visit Type Treatment Note Visit Start Time 13:45 Visit Stop Time 14:05 Total Visit Minutes 20 Visit Number 4 Number of FRENCH BINDER Visits 0 Evaluation Information Evaluation Date 07/05/23 PT-OP-B Current Condition Start: 07/05/23 14:22 Freq: Status: Active Protocol: Document 07/05/23 12:45 DCW (Rec: 07/05/23 14:37 DCW [id number]) Current Condition History of Current Condition Onset Date ~1 month Current Complaints Position-dependent vertigo History of Current Condition Pt is a 67 year old female well known to this clinic, coming in once again with recurrent position-dependent vertigo. Pt has been treated two separate times for BPPV at this clinic in the past year, and pt reports symptoms are exactly the same as usual, although maybe a little more frequent. Denies any other change in medical status since she was last seen. PT-OP-C Subjective Start: 07/05/23 14:22 Freq: Status: Active Protocol: Document 09/01/23 13:45 DCW (Rec: 09/01/23 14:14 DCW [id number]) OP-PT Subjective Patient Comments Patient Comments I was okay after the last time for 2.5-3 weeks, but then it got bad again. Has tried chiropractic and a software quality manager, with varying results. Reports this past week was just horrible. PT-OP-O Vestibular Start: 07/05/23 14:22 Freq: Status: Active Protocol: Document 09/01/23 13:45 DCW (Rec: 09/01/23 14:14 DCW [id number]) Vestibular Assessment Positional Testing [place]-Hallpike Negative Left,Negative Right PT-OP-Q Treatments Start: 07/05/23 14:22 Freq: Status: Active Protocol: Document 09/01/23 13:45 DCW (Rec: 09/01/23 14:14 DCW [id number]) Canalithic Repositioning BPPV Treatment Noris Affected Canal(s) Left posterior Reps x1 Comments Modified Noris PT-OP-T Assessment and Plan Start: 07/05/23 14:22 Freq: Status: Active Protocol: Document 09/01/23 13:45 DCW (Rec: 09/01/23 14:14 DCW [id number]) Physical Therapy Assessment Impairments Impairments Balance,Coordination, Functional Activities, Functional Mobility,Vestibular Goals Two Impairment Positive left Shabnam-Hallpike test Intermediate Goal (LTG) Pt to exhibit negative positional testing bilaterally LTG Duration 09/04/23 One Impairment Pt experiences vertigo and nausea with position changes in bed Short Term Goal (STG) Pt to report no episodes of vertigo with any bed mobility for a full week. STG Duration 08/05/23 Assessment Summary Assessment Pt noted very brief symptoms when lying back into right Shabnam -Hallpike, no associated nystagmus. Performed modified Noris due to pt noting mild symptoms, no further complaints of to multiple recurrences, pt very concerned about going forward without easy access to vestibular rehab. Agreeable to keep pt's chart open for another month so she can call for a follow- up if needed. Physical Therapy Plan Frequency and Duration Frequency of Treatment 2x/Week Plan of Care Start Date 09/01/23 Plan of Care End Date 10/18/23 Therapeutic Interventions Therapeutic Interventions Balance Training,Canalithic Repositioning,Coordination Training,Patient/Caregiver Education,Self-Care/Home Management,Therapeutic Activities,Therapeutic Exercises,Vestibular Rehabilitation Next Visit Focus/Plan Next Note Type Treatment Note Next Visit Plan Positional testing, CRM as indicated
--- NOTE | 2023-09-01 14:14 | PT.OPPOC ---
Physical, Occupational & Speech Therapy At [facility] Current Diagnoses Benign paroxysmal vertigo, unspecified ear (09/01/23) Vertigo of central origin (09/01/23) Nausea with vomiting, unspecified (09/01/23) Unsteadiness on feet (09/01/23) Dizziness and giddiness (09/01/23) Visit Care Team Role Provider Type Yoav Gunn MD Attending Provider Non-Staff Family Provider Primary Care Provider Referring Provider Specialty: Family Practice Address: [address] [place] [address], [phone] Email: Plan Of Care PT-OP-T Assessment and Plan Start: 07/05/23 14:22 Freq: Status: Active Protocol: Document 09/01/23 13:45 DCW (Rec: 09/01/23 14:14 DCW [id number]) Physical Therapy Assessment Impairments Impairments Balance,Coordination, Functional Activities, Functional Mobility,Vestibular Goals Two Impairment Positive left Shabnam-Hallpike test Forgeman Helper Goal (LTG) Pt to exhibit negative positional testing bilaterally LTG Duration 09/04/23 One Impairment Pt experiences vertigo and nausea with position changes in bed Short Term Goal (STG) Pt to report no episodes of vertigo with any bed mobility for a full week. STG Duration 08/05/23 Assessment Summary Assessment Pt noted very brief symptoms when lying back into right [place] -Hallpike, no associated nystagmus. Performed modified Noris due to pt noting mild symptoms, no further complaints of to multiple recurrences, pt very concerned about going forward without easy access to vestibular rehab. Agreeable to keep pt's chart open for another month so she can call for a follow- up if needed. Physical Therapy Plan Frequency and Duration Frequency of Treatment 2x/Week Plan of Care Start Date 09/01/23 Plan of Care End Date 10/18/23 Therapeutic Interventions Therapeutic Interventions Balance Training,Canalithic Repositioning,Coordination Training,Patient/Caregiver Education,Self-Care/Home Management,Therapeutic Activities,Therapeutic Exercises,Vestibular Rehabilitation Next Visit Focus/Plan Next Note Type Treatment Note Next Visit Plan Positional testing, CRM as indicated Plan of Care Dates Plan of Care Start Date 09/01/23 Plan of Care End Date 10/18/23 Electronically Signed by: Cortez Alcantar, PT 09/01/23 1414 If you are in agreement with this Plan of Care, please return a signed and dated copy. I have reviewed this Plan of Care and certify that the skilled therapy services above are required to meet the patient?s needs. Physician Signature Date Printed Name and Credentials Clinical Instructor Signature Printed Name and Credentials
--- NOTE | 2023-10-16 15:42 | PT.OTN ---
Current Diagnoses Benign paroxysmal vertigo, unspecified ear (10/16/23) Vertigo of central origin (10/16/23) Nausea with vomiting, unspecified (10/16/23) Unsteadiness on feet (10/16/23) Dizziness and giddiness (10/16/23) Physical Therapy Treatment Note PT-OP-A Visit Information Start: 07/05/23 14:22 Freq: Status: Active Protocol: Document 10/16/23 15:15 DCW (Rec: 10/16/23 15:42 DCW [id number]) Out-Patient Physical Therapy Visit Information Visit Information Visit Type Treatment Note Visit Start Time 15:15 Visit Stop Time 15:35 Visit Number 5 Number of SALESPERSON ART OBJECTS Visits 0 Evaluation Information Evaluation Date 07/05/23 PT-OP-B Current Condition Start: 07/05/23 14:22 Freq: Status: Active Protocol: Document 07/05/23 12:45 DCW (Rec: 07/05/23 14:37 DCW [id number]) Current Condition History of Current Condition Onset Date ~1 month Current Complaints Position-dependent vertigo History of Current Condition Pt is a 67 year old female well known to this clinic, coming in once again with recurrent position-dependent vertigo. Pt has been treated two separate times for BPPV at this clinic in the past year, and pt reports symptoms are exactly the same as usual, although maybe a little more frequent. Denies any other change in medical status since she was last seen. PT-OP-C Subjective Start: 07/05/23 14:22 Freq: Status: Active Protocol: Document 10/16/23 15:15 DCW (Rec: 10/16/23 15:42 DCW [id number]) OP-PT Subjective Patient Comments Patient Comments It's different than last time I saw you. When I get up, it' s like slow motion. Pt notes she has been seeing a homeopath, was given a dropper of a substance to help with dizziness. PT-OP-O Vestibular Start: 07/05/23 14:22 Freq: Status: Active Protocol: Document 10/16/23 15:15 DCW (Rec: 10/16/23 15:42 DCW [id number]) Vestibular Assessment Positional Testing [place]-Hallpike Negative Left,Negative Right PT-OP-Q Treatments Start: 10/18/23 14:22 Freq: Status: Active Protocol: Document 10/16/23 15:15 DCW (Rec: 10/16/23 15:42 DCW [id number]) Canalithic Repositioning BPPV Treatment Noris Affected Canal(s) Right posterior Reps x1 Comments Modified Noris PT-OP-T Assessment and Plan Start: 07/05/23 14:22 Freq: Status: Active Protocol: Document 10/16/23 15:15 DCW (Rec: 10/16/23 15:42 DCW [id number]) Physical Therapy Assessment Impairments Impairments Balance,Coordination, Functional Activities, Functional Mobility,Vestibular Goals Two Impairment Positive left [place]-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 STG Duration Assessment Summary Assessment Pt continues to complain of vague imbalance/dizziness, typically when up moving around. Positional testing continues to be negative, however pt did note some very mild sensation without associated nystagmus in right [place]-Hallpike. Due to history of frequent recurrence of BPPV , modified right Noris was performed. Pt scheduled for visit to ENT next month. Would like to keep case open between now and then in case she has a change in symptoms. Recommend VNG with ENT. Requested pt that following ENT visit, if she needs to return to Vestibular PT, that she have the ENT refer her. Physical Therapy Plan Frequency and Duration Frequency of Treatment 2x/Week Plan of Care Start Date 10/16/23 Plan of Care End Date 11/16/23 Therapeutic Interventions Therapeutic Interventions Balance Training,Canalithic Repositioning,Coordination Training,Patient/Caregiver Education,Self-Care/Home Management,Therapeutic Activities,Therapeutic Exercises,Vestibular Rehabilitation Next Visit Focus/Plan Next Note Type Treatment Note Next Visit Plan Positional testing, CRM as indicated
--- NOTE | 2023-10-16 15:43 | PT.OPPOC ---
Physical, Occupational & Speech Therapy At [facility] Current Diagnoses Benign paroxysmal vertigo, unspecified ear (10/16/23) Vertigo of central origin (10/16/23) Nausea with vomiting, unspecified (10/16/23) Unsteadiness on feet (10/16/23) Dizziness and giddiness (10/16/23) Visit Care Team Role Provider Type Yoav Gunn MD Attending Provider Non-Staff Family Provider Primary Care Provider Referring Provider Specialty: Family Practice Address: [address] [place] [address], [phone] Email: Plan Of Care PT-OP-T Assessment and Plan Start: 07/05/23 14:22 Freq: Status: Active Protocol: Document 10/16/23 15:15 DCW (Rec: 10/16/23 15:42 DCW [id number]) Physical Therapy Assessment Impairments Impairments Balance,Coordination, Functional Activities, Functional Mobility,Vestibular Goals Two Impairment Positive left 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 STG Duration Assessment Summary Assessment Pt continues to complain of vague imbalance/dizziness, typically when up moving around. Positional testing continues to be negative, however pt did note some very mild sensation without associated nystagmus in right [place]-Hallpike. Due to history of frequent recurrence of BPPV , modified right Noris was performed. Pt scheduled for visit to ENT next month. Would like to keep case open between now and then in case she has a change in symptoms. Recommend VNG with ENT. Requested pt that following ENT visit, if she needs to return to Vestibular PT, that she have the ENT refer her. Physical Therapy Plan Frequency and Duration Frequency of Treatment 2x/Week Plan of Care Start Date 10/16/23 Plan of Care End Date 11/16/23 Therapeutic Interventions Therapeutic Interventions Balance Training,Canalithic Repositioning,Coordination Training,Patient/Caregiver Education,Self-Care/Home Management,Therapeutic Activities,Therapeutic Exercises,Vestibular Rehabilitation Next Visit Focus/Plan Next Note Type Treatment Note Next Visit Plan Positional testing, CRM as indicated Plan of Care Dates Plan of Care Start Date 10/16/23 Plan of Care End Date 11/16/23 Electronically Signed by: Cortez Alcantar, PT 10/16/23 2678 If you are in agreement with this Plan of Care, please return a signed and dated copy. I have reviewed this Plan of Care and certify that the skilled therapy services above are required to meet the patient?s needs. Physician Signature Date Printed Name and Credentials Clinical Instructor Signature Printed Name and Credentials
--- NOTE | 2024-03-08 16:15 | PT.OPDS ---
Current Diagnoses Benign paroxysmal vertigo, unspecified ear (10/16/23) Vertigo of central origin (10/16/23) Nausea with vomiting, unspecified (10/16/23) Unsteadiness on feet (10/16/23) Dizziness and giddiness (10/16/23) Visit Care Team Role Provider Type Yoav Gunn MD Attending Provider Non-Staff Family Provider Primary Care Provider Referring Provider Specialty: Family Practice Address: [address] [place] [address], [phone] Email: Visit Number Visit Number 5 Discharge Summary PT-OP-B Current Condition Start: 07/05/23 14:22 Freq: Status: Active Protocol: Document 07/05/23 12:45 DCW (Rec: 07/05/23 14:37 DCW [id number]) Current Condition History of Current Condition Onset Date ~1 month Current Complaints Position-dependent vertigo History of Current Condition Pt is a 67 year old female well known to this clinic, coming in once again with recurrent position-dependent vertigo. Pt has been treated two separate times for BPPV at this clinic in the past year, and pt reports symptoms are exactly the same as usual, although maybe a little more frequent. Denies any other change in medical status since she was last seen. PT-OP-C Subjective Start: 07/05/23 14:22 Freq: Status: Active Protocol: Document 10/16/23 15:15 DCW (Rec: 10/16/23 15:42 DCW [id number]) OP-PT Subjective Patient Comments Patient Comments It's different than last time I saw you. When I get up, it' s like slow motion. Pt notes she has been seeing a homeopath, was given a dropper of a substance to help with dizziness. PT-OP-O Vestibular Start: 07/05/23 14:22 Freq: Status: Active Protocol: Document 10/16/23 15:15 DCW (Rec: 10/16/23 15:42 DCW [id number]) Vestibular Assessment Positional Testing [place]-Hallpike Negative Left,Negative Right PT-OP-T Assessment and Plan Start: 07/05/23 14:22 Freq: Status: Active Protocol: Document 03/08/24 16:13 DCW (Rec: 03/08/24 16:15 KELIN [id number]) Physical Therapy Assessment Assessment Summary Assessment Pt has not been seen in more than four months, will need a new referral in order to return to skilled therapy in the future. Physical Therapy Plan Discharge Physical Therapy Discharge Reasons No Longer Attending PT Next Visit Focus/Plan Next Note Type Discharge Summary
== END 2024-04-08 11:40 ==
LOC: PHYS 15:15
PROVIDERS: Family Provider Family Medicine; PCP Family Medicine; Referring Provider Family Medicine; Visit Provider Family Medicine
DX: H81.10 Benign paroxysmal vertigo, unspecified ear (principal); R26.81 Unsteadiness on feet; R11.2 Nausea with vomiting, unspecified; H81.4 Vertigo of central origin
CPT/HCPCS: 95992; 97140; 97162

== ENCOUNTER 2024-06-04 11:34 | Emergency (ER) | payer MEDICARE, BC, SELFPAY ==
[2024-06-04 11:36] VITALS: BP 171/74; PULSE 89; RESP 16; TEMP 36.8; O2SAT 96; BMI 32.5
--- NOTE | 2024-06-04 12:28 | DI.US.S_ITS ---
PROCEDURE: US PERIPH VENOUS LOW EXTREM RT INDICATIONS: PAIN TECHNIQUE: Real-time imaging, as well as color and pulse Doppler interrogation, were performed of the lower extremity deep veins from the inguinal ligament to the popliteal fossa, with documentation of the visualized calf veins. COMPARISON: None. FINDINGS: The common femoral, femoral, popliteal, and the visualized calf veins are normally compressible, and free of intraluminal thrombus. Color and pulse Doppler demonstrate normal phasic intraluminal flow. There is normal augmentation response to distal compression maneuver. IMPRESSION: No findings of lower extremity deep venous thrombosis. Dictated by: Fer Stuart M.D. on 06/04/2024 at 13:13 Approved by: Fer Stuart M.D. on 06/04/2024 at 13:13
--- NOTE | 2024-06-04 12:28 | DI.RAD.S_ITS ---
PROCEDURE: XR KNEE RT 3V INDICATIONS: leg pain;?popliteal cyst TECHNIQUE: 3 views of the knee were acquired. COMPARISON: None. FINDINGS: Bones: No fractures or dislocations. [id number] tricompartmental osteoarthritis is seen. No suspicious bony lesions. Soft tissues: No significant joint effusion. No suspicious soft tissue calcifications. IMPRESSION: No acute right knee fracture or dislocation. [id number] tricompartmental osteoarthritis. No significant joint effusion. Dictated by: Fer Stuart M.D. on 06/04/2024 at 13:25 Approved by: Fer Stuart M.D. on 06/04/2024 at 13:26
[2024-06-04] MEDS: KETOROLAC 30 MG/ML VIAL IM (12:38)
[2024-06-04 14:00] VITALS: BP 137/63; PULSE 60; RESP 16; O2SAT 99
--- NOTE | 2024-06-04 14:06 | ED_ITS ---
HPI - Extremity Problem <Aggie Lee PA-C - Last Filed: 06/04/24 14:13> General Chief complaint: Extremity Problem,Nontraumatic Stated complaint: Leg px Time Seen by Provider: 06/04/24 12:01 Source: patient Mode of arrival: Wheelchair History of Present Illness HPI Narrative: 68-year-old female with past medical history arthritis presents to the ED with right knee and leg pain for the last 3 days. Patient states that she has been feeling some discomfort in her knee for the past week, however in the last 3 days has worsened. Patient states that she recently started some pool aerobics. Patient complains of pain when bending and extending the knee, endorses some calf cramping as well as pain in the hamstrings. No specific injury /trauma. No numbness, tingling, weakness. Patient states that she has been taking some homeopathic medicines without relief. Related Data Previous Rx's Medication Instructions Recorded meclizine 25 mg tablet 25 mg PO TID PRN motion sickness 04/27/21 #20 tabs cyclobenzaprine 10 mg tablet 10 mg PO TID PRN muscle spasm 10 06/04/24 days #30 tabs Allergies Allergy/AdvReac Type Severity Reaction Status Date / Time No Known Drug Allergies Allergy Verified 04/27/21 13:50 Review of Systems <Aggie Lee PA-C - Last Filed: 06/04/24 14:13> Constitutional Constitutional: Denies chills, Denies fatigue, Denies fever(s), Denies frequent falls, Denies lethargy and Denies weakness Eyes Eyes: Denies change in vision, Denies eye discharge, Denies irritation and Denies loss of vision ENT Ears, Nose, Mouth, and Throat: Denies change in voice, Denies dizziness, Denies neck pain, Denies sore throat and Denies throat swelling Cardiovascular Cardiovascular: Denies chest pain, Denies irregular heart rhythm, Denies lightheadedness, Denies palpitations, Denies dyspnea, Denies dyspnea on exertion and Denies orthopnea Respiratory Respiratory: Denies cough, Denies dyspnea, Denies dyspnea on exertion and Denies wheezing Gastrointestinal Gastrointestinal: Denies abdominal pain, Denies change in bowel habits, Denies diarrhea, Denies nausea and Denies vomiting Musculoskeletal Musculoskeletal: Denies neck pain and Denies numbness Comments: right knee and leg pain Integumentary/Breasts Skin/Breast: Denies pruritus, Denies erythema, Denies rash and Denies wounds Neurologic Neurologic: Denies behavioral changes, Denies confusion, Denies dizziness, Denies frequent falls, Denies loss of vision, Denies numbness and Denies weakness Psychiatric Psychiatric: Denies anxiety, Denies behavioral changes, Denies confusion, Denies depression, Denies homicidal ideation and Denies suicidal ideation Endocrine Endocrine: Denies fatigue, Denies flushing and Denies palpitations Hematologic/Lymphatic Hematologic/Lymphatic: Denies easy bruising Allergic/Immunologic Allergic/Immunologic: Denies urticaria, Denies throat swelling and Denies wheezing Patient History <Aggie Lee PA-C - Last Filed: 06/04/24 14:13> Social History Smoking Status: Never smoker Smoking Status: Never smoker alcohol intake frequency: 0-2 drinks per day Substance Use Type: does not use Exam <Aggie Lee PA-C - Last Filed: 06/04/24 14:13> Narrative Exam Narrative: Const General:?cooperative, healthy appearing and comfortable [facility] Head:?normal to inspection Ears:?hearing grossly normal bilaterally Nose:?external nose normal Face and sinus:?normal facial exam and sinuses nontender Mouth:?oral mucosae normal Throat:?posterior oropharynx normal Eyes General:?appearance normal, both eyes and all related structures Neck Neck:?normal visual inspection and no lymphadenopathy noted Resp Effort & Inspection:?normal respiratory effort Auscultation:?clear to auscultation bilaterally Cardio Rate:?regular rate Rhythm:?regular rhythm Musculoskeletal No swelling, erythema, deformities noted on exam. There is some tenderness to palpation of the distal hamstrings. Full range of motion. Neurovascularly intact. Neuro General:?patient alert, patient awake and patient oriented x3 Initial Vital Signs Initial Vital Signs: Vital Signs Temperature 98.2 F 06/04/24 11:36 Pulse Rate 89 06/04/24 11:36 Respiratory Rate 16 06/04/24 11:36 Blood Pressure 171/74 H 06/04/24 11:36 Pulse Oximetry 96 06/04/24 11:36 Oxygen Delivery Method Room Air 06/04/24 11:36 <Valentina Raya DO - Last Filed: 06/05/24 07:44> Initial Vital Signs Initial Vital Signs: Vital Signs Temperature 98.2 F 06/04/24 11:36 Pulse Rate 89 06/04/24 11:36 Respiratory Rate 16 06/04/24 11:36 Blood Pressure 171/74 H 06/04/24 11:36 Pulse Oximetry 96 06/04/24 11:36 Oxygen Delivery Method Room Air 06/04/24 11:36 Course <Aggie Lee PA-C - Last Filed: 06/04/24 14:13> Orders Ordered: Discontinued Medications Ketorolac Tromethamine (Ketorolac 30 Mg/Ml Vial) 30 mg IM NOW ONE Stop: 06/04/24 12:30 Last Admin: 06/04/24 12:38 Dose: 30 mg Documented By: GENA Vital Signs Vital signs: Vital Signs - 8 hr 06/04/24 11:36 Temperature 98.2 F Pulse Rate 89 Respiratory Rate 16 Blood Pressure 171/74 H Pulse Oximetry 96 Oxygen Delivery Method Room Air <Valentina Raya, - Last Filed: 06/05/24 07:44> Orders Ordered: Discontinued Medications Ketorolac Tromethamine (Ketorolac 30 Mg/Ml Vial) 30 mg IM NOW ONE Stop: 06/04/24 12:30 Last Admin: 06/04/24 12:38 Dose: 30 mg Documented By: GENA Vital Signs Vital signs: Vital Signs - 8 hr 06/04/24 11:36 Temperature 98.2 F Pulse Rate 89 Respiratory Rate 16 Blood Pressure 171/74 H Pulse Oximetry 96 Oxygen Delivery Method Room Air MDM - Extremity (Nontraumatic) <Aggie Lee PA-C - Last Filed: 06/04/24 14:13> MDM Narrative Medical decision making narrative: 68-year-old female with past medical history arthritis presents to the ED with right knee and leg pain for the last 3 days. Concern for DVT versus fracture/dislocation versus musculoskeletal sprain /strain versus other. Ultrasound was obtained with no acute findings. X-ray of the knee without acute findings. There is some mild to moderate tricompartmental osteoarthritis. Discussed findings with patient. Recommend resting the leg, abstaining from water aerobics for a week. Patient had good relief with an injection of Toradol in the ED. Recommend ibuprofen, Tylenol, heat packs. Prescribed Flexeril. recommend follow-up with PCP for further evaluation, PT referral. ED return precautions discussed with patient and patient's daughter. They verbalized understanding. Medical records reviewed: Yes Discharge Plan Departure Patient Disposition: Home Clinical Impression: Knee pain Qualifiers: Chronicity: acute Laterality: right Qualified Code(s): M25.561 - Pain in right knee Instructions: DI for Knee Pain Activity Restrictions/Additional Instructions: You were evaluated in the ED today for right-sided knee pain. Your x-ray was normal without fractures or dislocations. The ultrasound was normal without any blood clots. It appears that your symptoms are due to a musculoskeletal sprain / strain. It is recommended that you rest the knee for the next few days, take ibuprofen 600 mg every 8 hours with food for pain. You may also add 1000 mg of Tylenol 3 times a day. Application of heat can greatly help heal the injury. You have been prescribed a muscle relaxant for pain relief as well. It could make you sleepy, therefore refrain from taking it when you are driving or operating machinery. Please exercise good fall precautions. Please follow-up with your PCP for further evaluation and referral to physical therapy. Return to the ED if you have worsening symptoms, numbness, tingling, weakness. Prescriptions: New cyclobenzaprine 10 mg tablet 10 mg PO TID PRN (Reason: muscle spasm) 10 Days Qty: 30 0RF No Action meclizine 25 mg tablet 25 mg PO TID PRN (Reason: motion sickness) Qty: 20 0RF Referrals: Miscellaneous,Doctor, MD [Primary Care Provider] - Stand Alone Forms: Patient Portal/API, Work Release Note ED Sign-out <Valentina Raya DO - Last Filed: 06/05/24 07:44> Cosign ED Attending [place] Attestation: I was immediately available in the department for consultation.
== END 2024-06-04 14:00 | disposition home or self-care (01) ==
PROVIDERS: Emergency Provider Student in an Organized Health Care Education/Training Program; Family Provider Family Medicine
DX: M25.561 Pain in right knee (principal)
CPT/HCPCS: 73562; 93971; 96372; 99283; 99284; J1885